=== PATIENT | male | born 1955 | race Caucasian/White ===

== ENCOUNTER 2025-02-04 14:48 | Outpatient (CLI) | payer MEDICARE, SELFPAY ==
--- OUTSIDE RECORDS SUMMARY | 2025-02-04 14:53 | XMS_ITS | Clinical Summary ---
Author Organization [facility] Address [facility] [place] [address] Care Team Providers Care Gunite Mixer Name Role Phone Unavailable Primary Care Provider Unavailabl e Social History Tobacco Use Types Packs/Day Years Used Date Smoking Tobacco: Never Assessed Sex and Gender Information Value Date Recorded Sex Assigned at Not on file Legal Sex Male 9:46 PM CDT Gender Identity Not on file Sexual Orientation Not on file Plan of Treatment Health Maintenance Due Date Last Done Comments Colorectal Cancer Screening Colonoscopy (10 Years) 1955 Hepatitis C 1973 DTaP, Tdap and Td Vaccines ( 1 - Tdap) 1974 Pneumococcal Vaccine: 50+ Ye ars (1 of 1 - PCV) 2005 Zoster Vaccines (1 of 2) 2005 COVID-19 Vaccine ( - 2023-2 5 season) 2024 RSV Immunization or 60+ Years (1 - 1-dose 75+ series) 2030 Meningococcal B Vaccine Aged Out No l onger eligible based on patient's age to complete this topic Meningococcal Vaccine Aged Out No gloria johanny eligible based on patient's age to complete this topic RSV Immunizations Under 20 Months Aged Out No longer eligible based on patient's age to complete this topic
--- OUTSIDE RECORDS SUMMARY | 2025-02-04 14:53 | XMS_ITS | Clinical Summary ---
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 Gender Identity Not on file Sexual Orientation Not on file Plan of Treatment Health Maintenance Due Date Last Done Comments Hepatitis C Virus (HCV) Screening 1955 Cologuard 2000 Colonoscopy 2000 Colorectal Cancer Screening 2000 Immunochemical Fecal Occult Blood 2000 Zoster Immunization (2 of 2) 07/31/2020 06/05/2020 Pneumococcal Immunization (5 0+ years) (2 of 2 - PPSV23) 06/05/2021 06/05/2020 SARS-COV-2 Immunization (4 - season) 2024 05/11/2021, 10/04/2020, 09/13/2020 Influenza Immunization (Seas on Ended) 2025 06/05/2020 Respiratory Syncytial Virus (RSV) Immunization (Adult) (1 - 1-dose 75+ series) 2030 DTaP/Tdap/Td Immunization Discontinued 06/05/2020 Pneumococcal Immunization Combined Discontinued 06/05/2020 TdaP Immunization Completed 06/05/2020 Hepatitis B Immunization Aged Out No longer eligible based on patient's age to complete this topic Human Papillomavirus (HPV) Immunization Aged Out No longer eligible based on patient's age to complete this topic Meningococcal Immunization (ACWY) Aged Out No longer eligible based on patient's age to complete this topic Rotavirus Immunization Aged Out No lo nger eligible based on patient's age to complete this topic
[2025-02-04 15:08] LABS: Hematocrit 41.8 % (42.0-52.0); Hemoglobin 14.2 g/dL (14.0-18.0)
[2025-02-04 15:25] LABS: Albumin Level 4.2 g/dL (3.5-5.1); Estimated Glomerular Filt Rate 53; Glucose 114 mg/dL (65-110)
== END 2025-02-04 14:49 | disposition home or self-care (01) ==
PROVIDERS: PCP Internal Medicine; Visit Provider Orthopaedic Surgery
DX: E78.2 Mixed hyperlipidemia (principal); N18.30 Chronic kidney disease, stage 3 unspecified; G72.0 Drug-induced myopathy; T46.6X5A Adverse effect of antihyperlipidemic and antiarteriosclerotic drugs, initial encounter
CPT/HCPCS: 36415; 82040; 82565; 82947; 85014; 85018

== ENCOUNTER 2025-02-11 08:15 | Outpatient (CLI) | payer MEDICARE, SELFPAY ==
--- OUTSIDE RECORDS SUMMARY | 2025-02-11 08:20 | XMS_ITS | Clinical Summary ---
Author Organization [facility] Address [facility] [place] [address] Care Team Providers Care Pilot Plant Operator Name Role Phone Unavailable Primary Care Provider [...]
--- OUTSIDE RECORDS SUMMARY | 2025-02-11 08:20 | XMS_ITS | Encounter Summary ---
Author Organization [facility] Address [address] [place] [address] Care Team Providers Care Human Resources Leader Name Role Phone Eddie Meadows MD Primary Care Provider Unavailab le Encounter Details Date Type Department Care Team (Late st Contact Info) Description 01/23/1999 Inpatient Historical HIS PATIENT IN A BED Nikki Hdez MD [address] [facility] [place] [address] Other specified oesophagitis (Primary Dx) Social History Tobacco Use Types Packs/Day Years Used Date Smoking Tobacco: Never Assessed Sex and Gender Information Value Date Recorded Sex Assigned at Not on file Legal Sex Male 3:48 AM RANGE TECHNICIAN Gender Identity Not on file Sexual Orientation Not on file documented as of this encounter Plan of Treatment Upcoming Encounters Date Type Department Care Team (Late st Contact Info) Description 03/11/2025 1:00 PM CDT Office Visit [facility] Heart and Vascular At [address] [place] [address] Cooper Paulson MD [address] [facility] [place] [address] documented as of this encounter Visit Diagnoses Diagnosis Other specified oesophagitis- Primary Other esophagitis documented in this encounter Care Teams Human Resources Leader Relationship Specialty Start Date End Date Eddie Meadows MD PCP - General Internal Medicine 12/03/20 documented as of this encounter
--- OUTSIDE RECORDS SUMMARY | 2025-02-11 08:20 | XMS_ITS | Clinical Summary ---
Author Organization [facility] Address [address] [place] [address] Care Team Providers Care Tubing Assembler Name Role Phone Eddie Meadows MD Primary Care Provider Unavailab le Allergies Active Allergy Reactions Criticality Noted Date Comments Amlodipine Other (See Comments) 09/18/2011 Leg swelling Atorvastatin Muscle Pain Low 09/18/2011 Body Lotion Other (See Comments),Rash Medium 10/11/2020 Carvedilol Other (See Comments) 09/18/2011 Weight gain and lethergy Clonazepam Other (See Comments),Unknown 10/11/2020 Codeine Unknown 06/13/2019 Doxazosin Other (See Comments) 09/18/2011 Ankle swelling Egg Derived Angioedema High 09/18/2011 Ezetimibe Muscle Pain Low 10/22/2017 Fenofibrate Micronized Muscle Pain Low 09/18/2011 Hydrochlorothiazide Swelling Medium 10/11/2020 Meloxicam Other (See Comments),Unknown 10/11/2020 Metformin Nausea and Vomiting Low 10/11/2020 Metoprolol Succinate Muscle Pain Low 09/18/2011 Niacin Other (See Comments) 09/18/2011 Flushing Quinapril Cough Low 09/18/2011 Rosuvastatin Muscle Pain Low 09/18/2011 Medications fluticasone (FLONASE) 50 mcg/Actuation Both Nostril SpSn Administer 2 Sprays in each nostril daily. 3 3 8 Active cyanocobalamin (VITAMIN B-12) 1,000 mcg Tablet, SublingualIndic ations:Statin intolerance,CAD (coronary artery disease),Metabo lic syndrome,HTN (hypertension), Myalgia and myositis,Mixed dyslipidemia,Go ut,Impaired fasting glucose,Depress ion with anxiety,Sleep apnea, obstructive,Demetrius ign prostatic hypertrophy with urinary obstruction,Obe sity,Anemia Place under tongue. Active MULTIVITAMIN ORALIndications :Statin intolerance,CAD (coronary artery disease),Metabo lic syndrome,HTN (hypertension), Myalgia and myositis,Mixed dyslipidemia,Go ut,Impaired fasting glucose,Depress ion with anxiety,Sleep apnea, obstructive,Demetrius ign prostatic hypertrophy with urinary obstruction,Obe sity,Anemia Take by mouth. Act justice EPINEPHrine (EPIPEN) 0.3 mg/0.3 mL Auto-InjectorIn dications:Stati n intolerance,CAD (coronary artery disease),Metabo lic syndrome,HTN (hypertension), Myalgia and myositis,Mixed dyslipidemia,Go ut,Impaired fasting glucose,Depress ion with anxiety,Sleep apnea, obstructive,Demetrius ign prostatic hypertrophy with urinary obstruction,Obe sity,Anemia Inject 0.3 mg by intramuscular injection one time only. Active cpap director of graduate medical education daily. Active aspirin (ECOTRIN EC) 81 mg Tablet, Delayed Release (E.C.) Take 1 Tablet (81 mg) by mouth daily. 5 Active nitroglycerin (NITROSTAT) 0.[address], [address] 1 Tablet (0.4 mg) under tongue every 5 minutes as needed for Chest Pain. 30 Tablet 3 7 Active cpap director of graduate medical education Active econazole (SPECTAZOLE) 1 % Cream APPLY TO FEET AND IN BETWEEEN TOES DAILY 2 Active gabapentin (NEURONTIN) 600 mg tablet Take 600 mg by mouth 3 times daily. 2 Active ALPRAZolam (XANAX) 0.5 mg tabletIndicatio ns:Recurrent major depressive disorder, in partial remission TAKE 1/2 (ONE-HALF) TABLET BY MOUTH NIGHTLY NEEDED FOR ANXIETY 30 Tablet 3 Active tamsulosin (FLOMAX) 0.4 mg capsuleIndicati ons:Statin intolerance,CAD (coronary artery disease),Metabo lic syndrome,HTN (hypertension), Chronic prostatitis,Mix ed dyslipidemia,Go ut,Impaired fasting glucose,Depress ion with anxiety,Sleep apnea, obstructive,Demetrius ign prostatic hyperplasia with urinary obstruction,Obe sity,Anemia Take 1 capsule by mouth once daily 90 Capsule 3 Active ALPRAZolam (XANAX) 0.5 mg tabletIndicatio ns:Recurrent major depressive disorder, in partial remission TAKE 1/2 (ONE-HALF) TABLET BY MOUTH NIGHTLY NEEDED FOR ANXIETY 30 Tablet 3 Active allopurinoL (ZYLOPRIM) 300 mg tabletIndicatio ns:Statin intolerance,CAD (coronary artery disease),Metabo lic syndrome,HTN (hypertension), Mixed dyslipidemia,Go ut,Impaired fasting glucose,Depress ion with anxiety,Sleep apnea, obstructive,Demetrius ign prostatic hyperplasia with urinary obstruction,Obe sity,Anemia,Etelvina lgia due to statin Take 1 tablet by mouth once daily 90 Tablet 3 Active desvenlafaxine (PRISTIQ) 50 mg Extended Release 24 hour tabletIndicatio ns:Recurrent major depressive disorder, in partial remission Take 1 tablet by mouth once daily with breakfast 90 Tablet 3 Active hydroCHLOROthia zide (MICROZIDE) 12.5 mg capsule Take 1 capsule by mouth once daily 90 Capsule 3 Active nebivoloL (BYSTOLIC) 10 mg Tablet Take 1 tablet by mouth once daily 90 Tablet 3 3 Active pantoprazole (PROTONIX) 40 mg Tablet, Delayed Release (E.C.) Take 1 tablet by mouth once daily 90 Tablet 3 Active losartan (COZAAR) 100 mg tablet Take 1 tablet by mouth once daily 90 Tablet 3 Active predniSONE (DELTASONE) 5 mg tablet Take 15 mg by mouth daily. 4 Active evolocumab (Repatha Nikkiick) 140 mg/mL Pen Injector Inject 1 mL (140 mg) by subcutaneous injection every 2 weeks. 2 mL 11 5 Active Active Problems Patient Care Coordination No te Formatting of this note migh t be different from the original. Operator Coating Furnace - Dr. Karl Paulson Problem Noted Date Diagnosed Date Polymyalgia rheumatica. 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 Declines zetia, On Pcsk9 202 2 08/21/2016 History of coronary artery s tent placement. PHILIP to RCA 06/20 in NSTEMI 07/12/2015 Rotator cuff impingement syndrome 09/12/2013 Prediabetes 01/29/2013 Overview (01/29/2013): Treated with Metformin. H/O myelitis 10/03/2012 CAD (coronary artery disease) 09/18/2011 Metabolic syndrome 09/18/2011 HTN (hypertension) 09/18/2011 Myofascial pain syndrome 09/18/2011 Mixed dyslipidemia 09/18/2011 Gout 09/18/2011 Impaired fasting glucose 09/18/2011 Depression with anxiety 09/18/2011 Sleep apnea, obstructive 09/18/2011 Benign prostatic hyperplasia with urinary hesita ncy 09/18/2011 Obesity 09/18/2011 Anemia 09/18/2011 Accelerated hypertension Chest pain Coronary artery disease invo lving [place] heart without angina pectoris Resolved Problems Problem Noted Date Diagnosed Date Resolved Date Cataract, left 08/30/2019 09/04/2019 Cataract, right 08/15/2019 09/04/2019 Statin intolerance 01/24/2016 1 ERRONEOUS ENCOUNTER--DISREGARD 02/26/2012 02/26/2012 Statin intolerance 09/18/2011 1 Encounters Date Type Department Care Team Description 01/20/2025 External Device Data STL ABSTRACTION Provider, Abstract 01/14/2025 Telephone [facility] Heart and Vascular - [facility] [address] [place] [address] Cooper Paulson MD Surgical Clearance 12/23/2024 External Device Data STL ABSTRACTION Provider, Abstract from Last 3 Months Immunizations Immunization Administration Dates Next Due (ADACEL/BOOSTRIX)(10 YR UP) TDAP VACCINE, 0.5ML, IM 06/05/2020 (AREXVY)(60 YR UP) RSV, MATT MBINANT, PROTEIN SUBUNIT RSVPREF, ADJUVANT RECONSTITUTED, 0.5 ML, PF 05/05/2023 (PFIZER)(12 YR UP) COVID-19 VACCINE - EMERGENCY USE AUTHORIZATION, MRNA, [id number](PF) 30 MCG/0.3 ML IM SUSP 05/02/2022,11/16/2021 (PNEUMOVAX 23)(50 YRS UP) PN EUMOCOCCAL POLYSACCHARIDE (PPV23) 0.5 ML, IM 05/11/2021 (PREVNAR 13)(6 WKS UP) PNEUM OCOCCAL CONJUGATE (PCV13) 0.5 ML, IM 06/05/2020 (SHINGRIX)(50 YRS UP) ZOSTER VACCINE RECOMBINANT, 0.5 ML, IM 03/17/2021,06/05/2020 (SPIKEVAX)(12 YRS AND UP)COV ID-19 VACCINE, MRNA, LNP-S(PF) 50 MCG/0.5 ML IM SUSPENCY USE AUTHORIZATION, RECOMBINANT-ADJ(PF) 5 MCG/0.5 ML IM SUSP 06/08/2023 INFLUENZA VACCINE QUADRIVALENT RECOMB 18 YR UP P F IM 05/11/2021,06/05/2020 Influenza Seasonal Unspecified Formulation IM ,05/02/2022 Pneumococcal 13-josue Conj Vacc Patient Supplied 1 Family History * Patient is adopted Medical History Relation Name Comments Hypertension Brother Cataract Father Stroke Father Alzheimer's Disease Maternal Grandmother Cataract Mother Other Mother lupas; aneurysm Stroke Mother Fuchs' dystrophy Neg Hx Glaucoma Neg Hx Macular Degen Neg Hx Relation Name Status Comments Brother Father Maternal Grandmother Mother Social History Tobacco Use Types Packs/Day Years Used Date Smoking Tobacco: Never Smokeless Tobacco: Never Tobacco Cessation:Counseling Given: Not Answered Alcohol Use Standard Drinks/Week Comments Yes 0 (1 standard drink = 0.6 oz pur e alcohol) moderate Sex and Gender Information Value Date Recorded Sex Assigned at Not on file Legal Sex Male 3:48 AM RECREATIONAL LEADER Gender Identity Not on file Sexual Orientation Not on file 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 Not on file Not on file Not on f ile Last Filed Vital Signs Vital Sign Reading Time Taken Comments Blood Pressure 126/70 09/10/2024 12:33 PM RECREATIONAL LEADER Pulse 79 09/10/2024 12:33 PM RECREATIONAL LEADER Temperature 36.7 C (98.1 F) 10/05/2022 2:02 PM RECREATIONAL LEADER Respiratory Rate 14 09/07/2022 12:00 PM RECREATIONAL LEADER Oxygen Saturation 96% 09/10/2024 12:33 PM RECREATIONAL LEADER Inhaled Oxygen Concentration - - Weight 114.8 kg (253 lb) 09/10/2024 12:33 PM RECREATIONAL LEADER Height 188 cm (6' 2) 09/10/2024 12:33 PM RECREATIONAL LEADER Body Mass Index 32.48 09/10/2024 12:33 PM RECREATIONAL LEADER Plan of Treatment Upcoming Encounters Date Type Department Care Team (Late st Contact Info) Description 03/11/2025 1:00 PM CDT Office Visit [facility] Heart and Vascular At [place] [address] [facility] [address] [place] [address] Cooper Paulson MD [address] [place] [address] Health Maintenance Due Date Last Done Comments FIT-DNA Q 3 years 2000 Flex Sig/CT Colonography Q 5 years 2000 FIT/FOBT Q 1 year 07/02/2008 07/02/2007, 04/08/2002 COLORECTAL SCREENING 09/18/2018 09/18/2008 Colorectal Cancer Screening 09/18/2018 COVID-19 Vaccine (2023-2 5 season) 2024 06/08/2023, 05/02/2022, 11/16/2021 INFLUENZA VACCINE (#1) 2025 , 05/05/2023, 05/02/2022, Additional history exists Pre-Diabetes and Diabetes Screening 10/05/2025 10/05/2022, 06/23/2022, 01/04/2022, Additional history exists DTAP/TDAP/TD VACCINES (2 - T d or Tdap) 06/05/2030 06/05/2020 ZOSTER VACCINE Completed 03/17/2021, 06/05/2020 PNEUMOCOCCAL VACCINE 50+ YEARS Completed 1 , 06/05/2020, 06/05/2020 RSV VACCINE (60+ or ) Completed 05/05/2023 Medical Devices Implanted Type Area Heater Planer Operator Device Identifier Shelf Expiration Date Model / Serial / Lot Lens Io [id number] 17.5 - [id number] Implanted:Qty : 1 on 08/19/2019 by Sourav Alvarez MD at [facility] Eye Right: Eye [employer] 10/04/2023 SN60WF.17 5 / [id number] / Lens Io Sn60wf 18.0 - [id number] Implanted:Qty : 1 on 09/02/2019 by Sourav Alvarez MD at [facility] Eye Left: Eye [employer] 04/05/2024 SN60WF.18 0 / [id number] / Promus Premier-06/23 Implanted:Qty : 1 on 06/23/2015 by Cooper Paulson MD Stent Coronary [employer] - INTERVENTIONAL CA 05/10/2016 / / [id number] Description:3.5mm X 20mm PHILIP to RCA Procedures Procedure Name Priority Date/Time Associated Diagnosis Comments HEMOGLOBIN A1C Routine 10/05/2022 2:53 PM RECREATIONAL LEADER Prediabetes from Last 3 Months or Most Recently Relevant to Health Maintenance Results * HEMOGLOBIN A1C (10/05/2022 2:53 PM RECREATIONAL LEADER) HEMOGLOBIN A1C 5.5 <5.7 % of total Hgb ParentingInformerGaye Burger Comment: For the purpose of screening for the presence of diabetes: <5.7% Consistent with the absence of diabetes 5.7-6.4% Consistent with increased risk for diabetes (prediabetes) > or =6.5% Consistent with diabetes This assay result is consistent with a decreased risk of diabetes. Currently, no consensus exists regarding use of hemoglobin A1c for diagnosis of diabetes in children. According to [place] Diabetes Association (ADA) guidelines, hemoglobin A1c <7.0% represents optimal control in non- diabetic patients. Different metrics may apply to specific patient populations. Standards of Medical Care in Diabetes(ADA). ESTIMATED AVERAGE GLUCOSE (MG/DL) 111 mg/dL ParentingInformerArvin Burger ESTIMATED AVERAGE GLUCOSE (MMOL/L) 6.2 mmol/L Alverto Burger Comment: [facility]: [facility] [address] [place] [address] Kimberly-Gris Thi Vo Blood 10/05/2022 2:53 PM RECREATIONAL LEADER 10/05/2022 2:54 PM RECREATIONAL LEADER us Eddie Meadows MD CHEMISTRY ORDERABLES Final Resul t [facility] [phone] [facility] [address] [place] [address] from Last 3 Months or Most Recently Relevant to Health Maintenance Insurance AETNA PPO [facility] RX AETNA Medicare Part D AETNA PPO [facility] Advance Directives For more information, please contact: [phone] * Full Code (Latest Code Status on File) Date Activated Date Inactivated Comments 09/07/2022 10:22 AM 09/07/2022 2:54 PM * Full Code Date Activated Date Inactivated Comments 09/07/2022 8:13 AM 09/07/2022 10:22 AM * Full Code Date Activated Date Inactivated Comments 09/02/2019 7:59 AM 09/02/2019 12:05 PM * Full Code Date Activated Date Inactivated Comments 08/19/2019 7:13 AM 08/19/2019 6:17 PM * Full Code Date Activated Date Inactivated Comments 06/23/2015 9:36 AM 06/24/2015 4:16 PM Care Teams Tubing Assembler Relationship Specialty Start Date End Date Eddie Meadows MD PCP - General Internal Medicine 12/03/20
--- OUTSIDE RECORDS SUMMARY | 2025-02-11 08:20 | XMS_ITS | Encounter Summary ---
Author Organization [facility] Address [address] [place] [address] Care Team Providers Care Type Photography Supervisor Name Role Phone Eddie Meadows MD Primary Care Provider Unavailab le Encounter Details Date Type Department Care Team (Late st Contact Info) Description 03/10/2002 Outpatient Historical [facility] Internal Medicine [address] [address] [place] [address] Familia Slade MD Social History Tobacco Use Types Packs/Day Years Used Date Smoking Tobacco: Never Assessed Sex and Gender Information Value Date Recorded Sex Assigned at Not on file Legal Sex Male 3:48 AM VASCULAR TECHNICIAN Gender Identity Not on file Sexual Orientation Not on file documented as of this encounter Plan of Treatment Upcoming Encounters Date Type Department Care Team (Late st Contact Info) Description 03/11/2025 1:00 PM CDT Office Visit [facility] Heart and Vascular At [place] [address] [facility] [address] [place] [address] Cooper Paulson MD [address] [facility] [place] [address] documented as of this encounter Visit Diagnoses Not on filedocumented in this encounter Care Teams Type Photography Supervisor Relationship Specialty Start Date End Date Eddie Meadows MD PCP - General Internal Medicine 12/03/20 documented as of this encounter
--- OUTSIDE RECORDS SUMMARY | 2025-02-11 08:20 | XMS_ITS | Encounter Summary ---
Author Organization [facility] Address [address] [place] [address] Care Team Providers Care Insurance Risk Analyst Name Role Phone Eddie Meaodws MD Primary Care Provider Unavailab le Encounter Details Date Type Department Care Team (Late st Contact Info) Description 01/23/1999 Outpatient Historical [facility] Familia Niño MD Social History Tobacco Use Types Packs/Day Years Used Date Smoking Tobacco: Never Assessed Sex and Gender Information Value Date Recorded Sex Assigned at Not on file Legal Sex Male 3:48 AM IDENTIFICATION CLERK Gender Identity Not on file Sexual Orientation Not on file documented as of this encounter Plan of Treatment Upcoming Encounters Date Type Department Care Team (Late st Contact Info) Description 03/11/2025 1:00 PM CDT [facility] Visit [facility] At [address] [place] [address] Cooper Paulson MD [facility] [address] [place] [address] documented as of this encounter Visit Diagnoses Not on filedocumented in this encounter Care Teams Insurance Risk Analyst Relationship Specialty Start Date End Date Eddie Meadows MD PCP - General Internal Medicine 12/03/20 documented as of this encounter
--- OUTSIDE RECORDS SUMMARY | 2025-02-11 08:20 | XMS_ITS | Encounter Summary ---
Author Organization [facility] Address [address] [place] [address] Care Team Providers Care Adobe Layer Helper Name Role Phone Eddie Meadows MD Primary Care Provider Unavailab le Encounter Details Date Type Department Care Team (Late st Contact Info) Description 10/31/[address] 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 Heart and Vascular At [place] [address] [facility] [address] [place] [address] Cooper Paulson MD [address] [facility]. [address] [place] [address] documented as of this encounter Visit Diagnoses Not on filedocumented in this encounter Care Teams Adobe Layer Helper Relationship Specialty Start Date End Date Eddie Meadows MD PCP - General Internal Medicine 12/03/20 documented as of this encounter
--- OUTSIDE RECORDS SUMMARY | 2025-02-11 08:20 | XMS_ITS | Clinical Summary ---
Author Organization [facility] Care Team Providers Care Training Systems Officer Name Role Phone Unavailable Primary Care Provider Unavailabl e Social History Tobacco Use Types Packs/Day Years Used Date Smoking Tobacco: Never Assessed Sex and Gender Information Value Date Recorded Sex Assigned at Not on file Legal Sex Male 10:45 AM GROUNDSKEEPER PORTER Gender Identity Not on file Sexual Orientation [...] season) 2024 05/11/2021, 10/04/2020, 09/13/2020 Influenza Immunization (#1) 2025 06/05/2020 Respiratory Syncytial Virus (RSV) Immunization [...]
--- OUTSIDE RECORDS SUMMARY | 2025-02-11 08:20 | XMS_ITS | Encounter Summary ---
Author Organization [facility] Address 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 [address] [place] [address] documented as of this encounter Visit Diagnoses Not on filedocumented in this encounter Care Teams Farmworker Chicken Farm Relationship Specialty Start Date End Date Eddie Meadows MD PCP - General Internal Medicine 12/03/20 documented as of this encounter
--- OUTSIDE RECORDS SUMMARY | 2025-02-11 08:20 | XMS_ITS | Encounter Summary ---
Author Organization [facility] Address [address] [place] [address] Care Team Providers Care Chummer Name Role Phone Eddie eMadows MD Primary Care Provider Unavailab le Encounter Details Date Type Department Care Team (Late st Contact Info) Description 04/22/2002 Outpatient Historical [facility] 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 [address] [place] [address] documented as of this encounter Visit Diagnoses Not on filedocumented in this encounter Care Teams Chummer Relationship Specialty Start Date End Date Eddie Meadows MD PCP - General Internal Medicine 12/03/20 documented as of this encounter
--- OUTSIDE RECORDS SUMMARY | 2025-02-11 08:20 | XMS_ITS | Encounter Summary ---
Author Organization [facility] Address 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. [address] [place] [address] documented as of this encounter Visit Diagnoses Not on filedocumented in this encounter Care Teams Furniture Duster Relationship Specialty Start Date End Date Eddie Meadows MD PCP - General Internal Medicine 12/03/20 documented as of this encounter
--- OUTSIDE RECORDS SUMMARY | 2025-02-11 08:20 | XMS_ITS | Encounter Summary ---
Author Organization [facility] Address 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 [address] [place] [address] documented as of this encounter Visit Diagnoses Not on filedocumented in this encounter Care Teams Spray Gun Sizer Relationship Specialty Start Date End Date Eddie Meadows MD PCP - General Internal Medicine 12/03/20 documented as of this encounter
--- OUTSIDE RECORDS SUMMARY | 2025-02-11 08:20 | XMS_ITS | Encounter Summary ---
Author Organization [facility] Address 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 [address] [place] [address] documented as of this encounter Visit Diagnoses Not on filedocumented in this encounter Care Teams Activity Therapist Relationship Specialty Start Date End Date Eddie Meadows MD PCP - General Internal Medicine 12/03/20 documented as of this encounter
--- OUTSIDE RECORDS SUMMARY | 2025-02-11 08:20 | XMS_ITS | Encounter Summary ---
Author Organization [facility] Address [address] [place] [address] Care Team Providers Care Molding Plasterer Name Role Phone Eddie Meadows MD Primary Care Provider Unavailab le Encounter Details Date Type Department Care Team (Late st Contact Info) Description 01/11/1999 Outpatient Historical 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 Heart and Vascular At [address] [place] [address] Cooper Paulson MD [facility]3 [facility] [address] [place] [address] documented as of this encounter Visit Diagnoses Not on filedocumented in this encounter Care Teams Molding Plasterer Relationship Specialty Start Date End Date Eddie Meadows MD PCP - General Internal Medicine 12/03/20 documented as of this encounter
--- OUTSIDE RECORDS SUMMARY | 2025-02-11 08:20 | XMS_ITS | Encounter Summary ---
Author Organization [facility] Address 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 [address] [place] [address] documented as of this encounter Visit Diagnoses Not on filedocumented in this encounter Care Teams Plant Machinist Relationship Specialty Start Date End Date Eddie Meadows MD PCP - General Internal Medicine 12/03/20 documented as of this encounter
--- OUTSIDE RECORDS SUMMARY | 2025-02-11 08:20 | XMS_ITS | Encounter Summary ---
Author Organization [facility] Address [address] [place] [address] Care Team Providers Care Laborer Driver Name Role Phone Eddie Meadows MD Primary Care Provider Unavailab le Encounter Details Date Type Department Care Team (Late st Contact Info) Description 01/29/1999 Outpatient Historical [facility] Internal Medicine [facility] and [address] [place] [address] Avis Allen MD [address] [address] Social History Tobacco Use Types Packs/Day Years Used Date Smoking Tobacco: Never Assessed Sex and Gender Information Value Date Recorded Sex Assigned at Not on file Legal Sex Male 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 [address] [place] [address] documented as of this encounter Visit Diagnoses Not on filedocumented in this encounter Care Teams Laborer Driver Relationship Specialty Start Date End Date Eddie Meadows MD PCP - General Internal Medicine 12/03/20 documented as of this encounter
--- OUTSIDE RECORDS SUMMARY | 2025-02-11 08:20 | XMS_ITS | Encounter Summary ---
Author Organization [facility] Address 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 [address] [place] [address] documented as of this encounter Visit Diagnoses Not on filedocumented in this encounter Care Teams Administrative Law Judge Relationship Specialty Start Date End Date Eddie Meadows MD PCP - General Internal Medicine 12/03/20 documented as of this encounter
--- OUTSIDE RECORDS SUMMARY | 2025-02-11 08:20 | XMS_ITS | Encounter Summary ---
Author Organization [facility] Address 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 [place], [place] [address] documented as of this encounter Visit Diagnoses Not on filedocumented in this encounter Care Teams Four H Club Agent Relationship Specialty Start Date End Date Eddie Meadows MD PCP - General Internal Medicine 12/03/20 documented as of this encounter
--- OUTSIDE RECORDS SUMMARY | 2025-02-11 08:20 | XMS_ITS | Encounter Summary ---
Author Organization [facility] Address 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 [address] [place] [address] documented as of this encounter Procedures Procedure Name Priority Date/Time Associated Diagnosis Comments CBC WITH DIFFERENTIAL Routine 07/02/2007 11:16 AM SALES ACTIVITY MANAGER CBC WITH DIFFERENTIAL Routine 07/02/2007 11:16 AM SALES ACTIVITY MANAGER PSA Routine 07/02/2007 11:16 AM SALES ACTIVITY MANAGER LIPID PANEL Routine 07/02/2007 11:16 AM SALES ACTIVITY MANAGER COMPREHENSIVE METABOLIC PANEL Routine 07/02/2007 11:16 AM SALES ACTIVITY MANAGER documented in this encounter Results * CBC WITH DIFFERENTIAL (07/02/2007 11:16 AM SALES ACTIVITY MANAGER) NEUTROPHILS 66 45 - 70 % INTERFAC E SYSTEM LYMPHOCYTES 23 16 - 45 % INTERFAC E SYSTEM MONOCYTES 8 3 - 13 % INTERFACE SYSTEM EOSINOPHILS 3 0 - 7 % INTERFAC E SYSTEM BASOPHILS 0 0 - 2 % INTERFACE SYSTEM NEUTROPHIL ABSOLUTE 4.45 1.90 - 7.00 K/uL INTERFACE SYSTEM LYMPHOCYTE ABSOLUTE 1.56 0.70 - 4.50 K/uL INTERFACE SYSTEM MONOCYTE ABSOLUTE 0.53 0.10 - 1.30 K/uL INTERFACE SYSTEM EOSINOPHIL ABSOLUTE 0.20 0.00 - 0.70 K/uL INTERFACE SYSTEM BASOPHILS ABSOLUTE 0.02 0.00 - 0.20 K/uL INTERFACE SYSTEM 07/02/2007 11:1 6 AM SALES ACTIVITY MANAGER Familia Slade MD HEMATOLOGY ORDERABLES Edited Performing Organization Address [facility] de Phone Number INTERFACE SYSTEM Refer to clinic/hospital department * CBC WITH DIFFERENTIAL (07/02/2007 11:16 AM SALES ACTIVITY MANAGER) Pathologist [facility] WBC 6.8 4.0 - 9.8 K/uL INTERFACE SYSTEM RBC 4.98 4.50 - 5.40 M/uL INTERFACE SYSTEM HEMOGLOBIN 15.4 13.6 - 16.5 g/dL INTERFACE SYSTEM HEMATOCRIT 44.6 40.0 - 48.0 % INTERFACE SYSTEM MCV 89.6 82.0 - 99.0 fL INTERFACE SYSTEM MCH 30.9 27.2 - 32.6 pg INTERFACE SYSTEM MCHC 34.5 31.5 - 35.5 % INTERFACE SYSTEM RDW 12.8 11.5 - 14.5 % INTERFACE SYSTEM RDW-STDEV 40.8 37.1 - 48.7 fL INTERFACE SYSTEM PLATELETS 262 140 - 350 K/uL INTERFACE SYSTEM MPV 11.4 9.3 - 12.4 fL INTERFACE SYSTEM 07/02/2007 11:1 6 AM SALES ACTIVITY MANAGER Familia Slade MD HEMATOLOGY ORDERABLES Edited Performing Organization Address [facility]/State/ZIP Co de Phone Number INTERFACE SYSTEM Refer to clinic/hospital department * PSA (07/02/2007 11:16 AM SALES ACTIVITY MANAGER) PSA 1.2 0.0 - 4.0 ng/mL INTERFACE SYSTEM Comment:Performed on [employer] E170 System 07/02/2007 11:1 6 AM SALES ACTIVITY MANAGER Familia Slade MD CHEMISTRY ORDERABLES Edited Performing Organization Address City/[facility] Co de Phone Number INTERFACE SYSTEM Refer to clinic/hospital department * (ABNORMAL) LIPID PANEL (07/02/2007 11:16 AM SALES ACTIVITY MANAGER) CHOLESTEROL 209(H) 100 - 199 mg/dL INTERFACE SYSTEM TRIGLYCERIDE 172(H) 10 - 149 mg/dL INTERFACE SYSTEM HDL 34(L) 40 - 59 mg/dL INTERFACE SYSTEM CHOL/HDL RATIO 6.1(H) 2.0 - 5.0 INTER FACE SYSTEM LDL CALCULATED 141(H) <=99 mg/dL INTERFACE SYSTEM LIPID PANEL COMMENT See Below INTERFACE SYSTEM Comment: The adult ATP and pediatric NCEP classifications for lipids are available on the [facility] Intranet at: [email or web address] [email or web address] Select: Lab Policies and Procedures,Current Select: Lipid Panel Interpretation 07/02/2007 11:1 6 AM SALES ACTIVITY MANAGER Familia Slade MD CHEMISTRY ORDERABLES Edited Performing Organization Address City/[facility] Co de Phone Number INTERFACE SYSTEM Refer to clinic/hospital department * (ABNORMAL) COMPREHENSIVE METABOLIC PANEL (07/02/2007 11:16 AM SALES ACTIVITY MANAGER) GLUCOSE 101(H) 65 - 99 mg/dL INTERFACE SYSTEM CREATININE 1.16 0.67 - 1.17 mg/dL INTERFACE SYSTEM CALCIUM 9.0 8.4 - 10.2 mg/dL INTERFACE SYSTEM ALKALINE PHOSPHATASE 68 40 - 129 U/L INTERFACE SYSTEM AST 23 12 - 38 U/L INTERFACE SYSTEM ALT 36 0 - 41 U/L INTERFACE SYSTEM TOTAL PROTEIN 7.1 6.3 - 8.6 g/dL INTERFACE SYSTEM ALBUMIN 4.5 3.4 - 4.8 g/dL INTERFACE SYSTEM BILIRUBIN TOTAL 0.6 0.2 - 1.0 mg/dL INTERFACE SYSTEM BUN 16 6 - 20 mg/dL INTERFACE SYSTEM SODIUM 140 135 - 145 mmol/L INTERFACE SYSTEM POTASSIUM 4.5 3.5 - 4.9 mmol/L INTERFACE SYSTEM CHLORIDE 102 96 - 108 mmol/L INTERFACE SYSTEM CO2 30 22 - 30 mmol/L INTERFACE SYSTEM GFR, >60 >=60 mL/min/1. 7 sq meter INTERFACE SYSTEM GFR >60 >=60 mL/min/1. 7 sq meter INTERFACE SYSTEM Comment: Estimated GFR rate interpretative information for both Americans and non- Americans is available on the [facility] Ception Therapeuticset at: [email or web address] Select: Lab Policies and Procedures Select: Reference Ranges - GFR 07/02/2007 11:1 6 AM SALES ACTIVITY MANAGER Familia Slade MD CHEMISTRY ORDERABLES Edited INTERFACE SYSTEM Refer to clinic/hospital department documented in this encounter Visit Diagnoses Diagnosis Essential hypertension, benign- Primary documented in this encounter Care Teams Telephone Assembler Relationship Specialty Start Date End Date Eddie Meadows MD PCP - General Internal Medicine 12/03/20 documented as of this encounter
--- OUTSIDE RECORDS SUMMARY | 2025-02-11 08:20 | XMS_ITS | Encounter Summary ---
Author Organization [facility] Address 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 [address] [place] [address] Cooper Paulson MD [address] [facility]. [address] [place] [address] documented as of this encounter Visit Diagnoses Not on filedocumented in this encounter Care Teams Hotel Housekeeper Relationship Specialty Start Date End Date Eddie Meadows MD PCP - General Internal Medicine 12/03/20 documented as of this encounter
--- OUTSIDE RECORDS SUMMARY | 2025-02-11 08:20 | XMS_ITS | Encounter Summary ---
Author Organization [facility] Address 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 [place] [address] documented as of this encounter Visit Diagnoses Not on filedocumented in this encounter Care Teams Security Police Relationship Specialty Start Date End Date Eddie Meadows MD PCP - General Internal Medicine 12/03/20 documented as of this encounter
--- OUTSIDE RECORDS SUMMARY | 2025-02-11 08:20 | XMS_ITS | Encounter Summary ---
Author Organization [facility] Address 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 Gender Identity Not on file Sexual Orientation Not on file documented as of this encounter Plan of Treatment Upcoming Encounters Date Type Department Care Team (Late st Contact Info) Description 03/11/2025 1:00 PM CDT Office Visit [facility] Heart and Vascular At [place] [address] [facility] [address] [place] [address] Cooper Paulson MD [facility] [address] [place] [id number] documented as of this encounter Visit Diagnoses Diagnosis Other dyspnea and respiratory abnormality- Primary documented in this encounter Care Teams Electronic Bench Technician Relationship Specialty Start Date End Date Eddie Meadows MD PCP - General Internal Medicine 12/03/20 documented as of this encounter
--- OUTSIDE RECORDS SUMMARY | 2025-02-11 08:20 | XMS_ITS | Encounter Summary ---
Author Organization [facility] Address [address] [place] [address] Care Team Providers Care Cabin Supervisor Name Role Phone Eddie Meadows MD Primary Care Provider Unavailab le Encounter Details Date Type Department Care Team (Late st Contact Info) Description 03/12/[address] 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 Heart and Vascular At [place] [address] [facility] [address] [place] [address] Cooper Paulson MD [address] [facility] [place] [address] documented as of this encounter Visit Diagnoses Not on filedocumented in this encounter Care Teams Cabin Supervisor Relationship Specialty Start Date End Date Eddie Meadows MD PCP - General Internal Medicine 12/03/20 documented as of this encounter
--- OUTSIDE RECORDS SUMMARY | 2025-02-11 08:20 | XMS_ITS | Encounter Summary ---
Author Organization [facility] Address 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 [address] [place] [address] documented as of this encounter Visit Diagnoses Diagnosis Concussion with no loss of consciousness- Primary documented in this encounter Care Teams Director Of Casework Department Relationship Specialty Start Date End Date Eddie Meadows MD PCP - General Internal Medicine 12/03/20 documented as of this encounter
--- OUTSIDE RECORDS SUMMARY | 2025-02-11 08:20 | XMS_ITS | Encounter Summary ---
Author Organization [facility] Address [address] [place] [address] Care Team Providers Care Head Sawyer Name Role Phone Eddie Meadows MD Primary Care Provider Unavailab le Encounter Details Date Type Department Care Team (Late st Contact Info) Description 07/04/2005 Outpatient Historical [facility] Internal Medicine [place] [address] [place] [address] Familia Slade MD Social History Tobacco Use Types Packs/Day Years Used Date Smoking Tobacco: Never Assessed Sex and Gender Information Value Date Recorded Sex Assigned at Not on file Legal Sex Male 3:48 AM BENDER HAND Gender Identity Not on file Sexual Orientation Not on file documented as of this encounter Plan of Treatment Upcoming Encounters Date Type Department Care Team (Late st Contact Info) Description 03/11/2025 1:00 PM CDT Office Visit [facility] Heart and Vascular At [place] [address] [facility] [address] [place] [address] Cooper Paulson MD [address] [facility]. [address] [place] [address] documented as of this encounter Visit Diagnoses Not on filedocumented in this encounter Care Teams Head Sawyer Relationship Specialty Start Date End Date Eddie Meadows MD PCP - General Internal Medicine 12/03/20 documented as of this encounter
--- OUTSIDE RECORDS SUMMARY | 2025-02-11 08:20 | XMS_ITS | Encounter Summary ---
Author Organization [facility] Address 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 [place], [place] [phone] documented as of this encounter Visit Diagnoses Diagnosis Special screening for malignant neoplasms, colon- Primary documented in this encounter Care Teams English Division Chair Relationship Specialty Start Date End Date Eddie Meadows MD PCP - General Internal Medicine 12/03/20 documented as of this encounter
--- OUTSIDE RECORDS SUMMARY | 2025-02-11 08:20 | XMS_ITS | Encounter Summary ---
Author Organization [facility] Address [address] [place] [address] Care Team Providers Care Lead Painter Name Role Phone Eddie Meadows MD Primary Care Provider Unavailab le Encounter Details Date Type Department Care Team (Late st Contact Info) Description 07/02/[address] 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 Heart and Vascular At [place] [address] [facility] [address] [place] [address] Cooper Paulson MD [address] [facility] [place] [address] documented as of this encounter Visit Diagnoses Not on filedocumented in this encounter Care Teams Lead Painter Relationship Specialty Start Date End Date Eddie Meadows MD PCP - General Internal Medicine 12/03/20 documented as of this encounter
--- NOTE | 2025-02-11 08:42 | ECG_ITS ---
Test Date: 2025-02-11 09:07:51 Measurements Intervals [place] Rate: 67 P: 61 [place]: 147 QRS: 6 QRSD: 98 T: 7 QT: 410 QTc: 434 Interpretive Statements SINUS RHYTHM No previous ECG available for comparison Electronically Signed On 02-11-2025 14:38:21 CDT by Imtiaz Go M.D.
== END 2025-02-11 08:16 | disposition home or self-care (01) ==
PROVIDERS: PCP Internal Medicine; Visit Provider Orthopaedic Surgery
DX: I13.10 Hypertensive heart and chronic kidney disease without heart failure, with stage 1 through stage 4 chronic kidney disease, or unspecified chronic kidney disease (principal); N18.30 Chronic kidney disease, stage 3 unspecified
CPT/HCPCS: 93005

== ENCOUNTER 2025-04-15 10:18 | Outpatient (CLI) | payer MEDICARE, SELFPAY ==
--- OUTSIDE RECORDS SUMMARY | 2012-11-14 07:55 | XMS_ITS | Continuity of Care Document ---
Author Organization [facility] Address [address] [place] [address] Phone Care Team Providers Care Controlled Area Checker Name Role Phone Santana Bianchi MD Unavailable Unavailable Allergies, Adverse Reactions, Alerts Substance Reaction Status Criticality No Known allergies Medications Medication Instructions Dosage Effective Dates (start - stop) Status Comments Mobic 15 mg tablet take 1 tablet (15MG) 1 po qd w/ food - Active PRISTIQ (unknown strength) Not Available - Active MICARDIS (unknown strength) Not Available - Active BYSTOLIC (unknown strength) Not Available - Active FLOMAX (unknown strength) Not Available - Active OMEPRAZOLE (unknown strength) Not Available - Active Procedures Procedure Date MU Reporting OFFICE CONSULTATION Advance Directives Directive Yes / No Effective Date File Name No Information Encounters Encounter Description Practice Location Reason(s) For Visit Diagnoses Date Provider Providers Copied on Encounter [facility], [address], [facility], tel:[phone] [facility] No Information 3 Arias Dillon. [address] [facility] [place], [id number] . tel: [phone] [facility], [address] [facility] [address] [place] [address], [address], [place] tel:[phone] [facility] Degeneration of lumbar or lumbosacral intervertebral discAcquired spondylolisthesi s Nov- 0-201 3 Arias Dillon. [address] [facility] [place], [address] . tel: [phone] OFFICE CONSULTATION [facility], [address], [place], [address], [place] tel:[phone] [facility] LBP and sciatica (chief complaint) Degeneration of lumbar or lumbosacral intervertebral discHypertension , UnspecifiedSpina l stenosis of lumbar regionAcquired spondylolisthesi s 2 Arias Dillon. [address], [place], [place], [id number] . tel:[phone] Referring Provider: Familia Jacob, [address], [place], [address]. tel:[phone] Family History Family Member Type Diagnosis Age At Onset Problem (finding) Family history of hyper tension Problem (finding) Family history of strok e Payers Payer name Insurance type Covered democrat ID Authoriza tion(s) No Information Social History Type Description Quantity Date Captured Comments Sex Male Smoking Status No Information Chief Complaint And Reason For Visit No Information Reason For Referral Reason For Referral No Information Plan Of Treatment Date Type Action Status Referral Ordered: RADEX SPI LUMBOSAC 2/3 VIEWS spine, lumbar ordered History Of Present Illness Encounter Date Complaint History Of Prese nt Illness No Information Functional Status Date Functional Assessmen t No Information Instructions Date Instruction Additional Cassandrar fred Continue medication as prescribe d Assessments Type Assessment Date No Information Patient Care Teams Name Effective Dates (start - stop) Status Members No Information
--- NOTE | 2025-04-15 11:12 | ECG_ITS ---
Test Date: 2025-04-15 11:25:49 Measurements Intervals [place] Rate: 61 P: 42 HI: 151 QRS: -5 QRSD: 106 T: -5 QT: 407 QTc: 410 Interpretive Statements SINUS RHYTHM NORMAL ELECTROCARDIOGRAM Compared to ECG 02/11/2025 09:07:51 No significant changes Electronically Signed On 04-15-2025 16:22:11 CDT by Alexis Bernal M.D.
--- OUTSIDE RECORDS SUMMARY | 2025-04-15 11:13 | XMS_ITS | Encounter Summary ---
Author Organization [facility] Address 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 [place] [address] documented as of this encounter Visit Diagnoses Diagnosis Special screening for malignant neoplasms, colon- Primary documented in this encounter Care Teams Pairer Relationship Specialty Start Date End Date Eddie Meadows MD PCP - General Internal Medicine 12/03/20 documented as of this encounter
--- OUTSIDE RECORDS SUMMARY | 2025-04-15 11:13 | XMS_ITS | Clinical Summary ---
Author Organization [facility] Care Team Providers Care Beet Worker Name Role Phone Unavailable Primary Care Provider Unavailabl e Social History Tobacco Use Types Packs/Day Years Used Date Smoking Tobacco: Never Assessed Sex and Gender Information Value Date Recorded Sex Assigned at Not on file Legal Sex Male 10:45 AM WASH BARREL LEADER Gender Identity Not on file Sexual Orientation Not on file Plan of Treatment Health Maintenance Due Date Last Done Comments Hepatitis C Virus (HCV) Screening 1955 Cologuard 2000 Colonoscopy 2000 Colorectal Cancer Screening 2000 Immunochemical Fecal Occult Blood 2000 Zoster Immunization (2 of 2) 07/31/2020 06/05/2020 Pneumococcal Immunization (5 0+ years) (2 of 2 - PCV20 or PCV21) 06/05/2021 06/05/2020 Influenza Immunization (#1) 2025 06/05/2020 SARS-COV-2 Immunization (4 - season) 2025 05/11/2021, 10/04/2020, 09/13/2020 Respiratory Syncytial Virus (RSV) Immunization (Adult) (1 [...]
--- OUTSIDE RECORDS SUMMARY | 2025-04-15 11:13 | XMS_ITS | Encounter Summary ---
Author Organization [facility] Address 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 [address] [place] [address] documented as of this encounter Visit Diagnoses Not on filedocumented in this encounter Care Teams Coal Getter Relationship Specialty Start Date End Date Eddie Meadows MD PCP - General Internal Medicine 12/03/20 documented as of this encounter
--- OUTSIDE RECORDS SUMMARY | 2025-04-15 11:13 | XMS_ITS | Encounter Summary ---
Author Organization [facility] Address 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 [address] [place] [address] documented as of this encounter Visit Diagnoses Not on filedocumented in this encounter Care Teams Belt Lacer Relationship Specialty Start Date End Date Eddie Meadows MD PCP - General Internal Medicine 12/03/20 documented as of this encounter
--- OUTSIDE RECORDS SUMMARY | 2025-04-15 11:13 | XMS_ITS | Encounter Summary ---
Author Organization [facility] Address 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 GEOGRAPHY TEACHER Gender Identity Not on file Sexual Orientation Not on file documented as of this encounter Plan of Treatment Upcoming Encounters Date Type Department Care Team (Late st Contact Info) Description 10/05/2025 3:00 PM GEOGRAPHY TEACHER Office Visit [facility] Heart and Vascular At [place] [address] [address] [facility] [address] [place] [address] Cooper Paulson MD [address] [place] [address] [place] [address] documented as of this encounter Visit Diagnoses Diagnosis Other dyspnea and respiratory abnormality- Primary documented in this encounter Care Teams Research Analyst Relationship Specialty Start Date End Date Eddie Meadows MD PCP - General Internal Medicine 12/03/20 documented as of this encounter
--- OUTSIDE RECORDS SUMMARY | 2025-04-15 11:13 | XMS_ITS | Encounter Summary ---
Author Organization [facility] Address 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3 [facility]. [address] [place] [address] documented as of this encounter Visit Diagnoses Not on filedocumented in this encounter Care Teams Tube Sorter Relationship Specialty Start Date End Date Eddie Meadows MD PCP - General Internal Medicine 12/03/20 documented as of this encounter
--- OUTSIDE RECORDS SUMMARY | 2025-04-15 11:13 | XMS_ITS | Encounter Summary ---
Author Organization [facility] Address 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 [address] [place] [address] documented as of this encounter Visit Diagnoses Not on filedocumented in this encounter Care Teams Office Administration Relationship Specialty Start Date End Date Eddie Meadows MD PCP - General Internal Medicine 12/03/20 documented as of this encounter
--- OUTSIDE RECORDS SUMMARY | 2025-04-15 11:13 | XMS_ITS | Encounter Summary ---
Author Organization [facility] Address [address] [place] [address] Care Team Providers Care Stock Trader Name Role Phone Eddie Meadows MD Primary Care Provider Unavailab le Encounter Details Date Type Department Care Team (Late st Contact Info) Description 04/22/2002 Outpatient Historical [facility] (Adt Cardiology[facility] [place] [address] Eddie Diaz Social History Tobacco Use Types Packs/Day Years Used Date Smoking Tobacco: Never Assessed Sex and Gender Information Value Date Recorded Sex Assigned at Not on file Legal Sex Male 3:48 AM WORKERS COMPENSATION ADMINISTRATOR Gender Identity Not on file Sexual Orientation Not on file documented as of this encounter Plan of Treatment Upcoming Encounters Date Type Department Care Team (Late st Contact Info) Description 10/05/2025 3:00 PM WORKERS COMPENSATION ADMINISTRATOR Office Visit [facility] Heart and Vascular At [facility] [address] [facility] [address] [place] [address] Cooper Paulson MD [address] [facility] [place] [address] documented as of this encounter Visit Diagnoses Not on filedocumented in this encounter Care Teams Stock Trader Relationship Specialty Start Date End Date Eddie Meadows MD PCP - General Internal Medicine 12/03/20 documented as of this encounter
--- OUTSIDE RECORDS SUMMARY | 2025-04-15 11:13 | XMS_ITS | Encounter Summary ---
Author Organization [facility] Address [address] [place] [address] Care Team Providers Care Copy Chief Name Role Phone Eddie Maedows MD Primary Care Provider Unavailab le Encounter Details Date Type Department Care Team (Late st Contact Info) Description 01/23/1999 Outpatient Historical [facility] Familia Niño MD Social History Tobacco Use Types Packs/Day Years Used Date Smoking Tobacco: Never Assessed Sex and Gender Information Value Date Recorded Sex Assigned at Not on file Legal Sex Male 3:48 AM CYTOTECHNOLOGIST SUPERVISOR Gender Identity Not on file Sexual Orientation Not on file documented as of this encounter Plan of Treatment Upcoming Encounters Date Type Department Care Team (Late st Contact Info) Description 10/05/2025 3:00 PM CYTOTECHNOLOGIST SUPERVISOR Office Visit [facility] Heart and Vascular At [address] [place] [address] Cooper Paulson MD [address] [place] [address] [place] [phone] documented as of this encounter Visit Diagnoses Not on filedocumented in this encounter Care Teams Copy Chief Relationship Specialty Start Date End Date Eddie Meadows MD PCP - General Internal Medicine 12/03/20 documented as of this encounter
--- OUTSIDE RECORDS SUMMARY | 2025-04-15 11:13 | XMS_ITS | Encounter Summary ---
Author Organization [facility] Address [address] [place] [address] Care Team Providers Care Ball Machine Operator Name Role Phone Eddie Meadows MD Primary Care Provider Unavailab le Encounter Details Date Type Department Care Team (Late st Contact Info) Description 01/29/1999 Outpatient Historical [facility] Internal Medicine [facility] and [address] [place] [address] Avis Allen MD [address] [address] Social History Tobacco Use Types Packs/Day Years Used Date Smoking Tobacco: Never Assessed Sex and Gender Information Value Date Recorded Sex Assigned at Not on file Legal Sex Male 3:48 AM DIGITAL INTERN Gender Identity Not on file Sexual Orientation Not on file documented as of this encounter Plan of Treatment Upcoming Encounters Date Type Department Care Team (Late st Contact Info) Description 10/05/2025 3:00 PM DIGITAL INTERN Office Visit [facility] Heart and Vascular At [address] [place] [address] Cooper Paulson MD [facility]3 [facility]. [address] [place] [address] documented as of this encounter Visit Diagnoses Not on filedocumented in this encounter Care Teams Ball Machine Operator Relationship Specialty Start Date End Date Eddie Meadows MD PCP - General Internal Medicine 12/03/20 documented as of this encounter
--- OUTSIDE RECORDS SUMMARY | 2025-04-15 11:13 | XMS_ITS | Encounter Summary ---
Author Organization [facility] Address [address] [place] [address] Care Team Providers Care Professor Of Early Childhood Education Name Role Phone Eddie Meadows MD Primary Care Provider Unavailab le Encounter Details Date Type Department Care Team (Late st Contact Info) Description 10/25/2001 Emergency [facility] EMERGENCY RO[facility] L Sundar Javier MD NO ADDRESS ON FILE Er, Authorized P NO ADDRESS ON FILE CONCUSSION W/O COMA (Primary Dx) Social History Tobacco Use Types Packs/Day Years Used Date Smoking Tobacco: Never Assessed Sex and Gender Information Value Date Recorded Sex Assigned at Not on file Legal Sex Male 3:48 AM CONTRACT PARALEGAL Gender Identity Not on file Sexual Orientation Not on file documented as of this encounter Plan of Treatment Upcoming Encounters Date Type Department Care Team (Late st Contact Info) Description 10/05/2025 3:00 PM CONTRACT PARALEGAL Office Visit [facility] Heart and Vascular At [place] [address] [facility] [address] [place] [address] Cooper Paulson MD [facility]3 [facility]. [address] [place] [address] documented as of this encounter Visit Diagnoses Diagnosis Concussion with no loss of consciousness- Primary documented in this encounter Care Teams Professor Of Early Childhood Education Relationship Specialty Start Date End Date Eddie Meadows MD PCP - General Internal Medicine 12/03/20 documented as of this encounter
--- OUTSIDE RECORDS SUMMARY | 2025-04-15 11:13 | XMS_ITS | Encounter Summary ---
Author Organization [facility] Address [address] [place] [address] Care Team Providers Care Binder Selector Name Role Phone Eddie Meadows MD Primary Care Provider Unavailab le Encounter Details Date Type Department Care Team (Late st Contact Info) Description 04/08/2002 Outpatient Historical [facility] Internal Medicine [place] [address] [place] [address] Familia Slade MD Social History Tobacco Use Types Packs/Day Years Used Date Smoking Tobacco: Never Assessed Sex and Gender Information Value Date Recorded Sex Assigned at Not on file Legal Sex Male 3:48 AM RETREAD TECHNICIAN Gender Identity Not on file Sexual Orientation Not on file documented as of this encounter Plan of Treatment Upcoming Encounters Date Type Department Care Team (Late st Contact Info) Description 10/05/2025 3:00 PM RETREAD TECHNICIAN Office Visit [facility] Heart and Vascular At [address] [place] [address] Cooper Paulson MD [facility]. [address] [place] [address] documented as of this encounter Visit Diagnoses Not on filedocumented in this encounter Care Teams Binder Selector Relationship Specialty Start Date End Date Eddie Meadows MD PCP - General Internal Medicine 12/03/20 documented as of this encounter
--- OUTSIDE RECORDS SUMMARY | 2025-04-15 11:13 | XMS_ITS | Encounter Summary ---
Author Organization [facility] Address [address] [place] [address] Care Team Providers Care Inspector Watch Parts Name Role Phone Eddie Meadows MD Primary [...] on file Legal Sex Male 3:48 AM RISK MGR Gender Identity Not on file Sexual Orientation Not on file documented as of this encounter Plan of Treatment Upcoming Encounters Date Type Department Care Team (Late st Contact Info) Description 10/05/2025 3:00 PM RISK MGR Office Visit [facility] Heart and Vascular At [address] [place] [address] Cooper Paulson MD [address] [place] [address] [place] [phone] documented as of this encounter Visit Diagnoses Not on filedocumented in this encounter Care Teams Inspector Watch Parts Relationship Specialty Start Date End Date Eddie Meadows MD PCP - General Internal Medicine 12/03/20 documented as of this encounter
--- OUTSIDE RECORDS SUMMARY | 2025-04-15 11:13 | XMS_ITS | Encounter Summary ---
Author Organization [facility] Address [address] [place] [address] Care Team Providers Care Bed Machine Operator Name Role Phone Eddie Meadows MD Primary Care Provider Unavailab le Encounter Details Date Type Department Care Team (Late st Contact Info) Description 01/23/1999 Inpatient Historical [facility] PATIENT IN A BED Nikki Hdez MD [address] [facility] [place] [address] Other specified oesophagitis (Primary Dx) Social History Tobacco Use Types Packs/Day Years Used Date Smoking Tobacco: Never Assessed Sex and Gender Information Value Date Recorded Sex Assigned at Not on file Legal Sex Male 3:48 AM GEODETIC SURVEYOR TECHNOLOGIST Gender Identity Not on file Sexual Orientation Not on file documented as of this encounter Plan of Treatment Upcoming Encounters Date Type Department Care Team (Late st Contact Info) Description 10/05/2025 3:00 PM GEODETIC SURVEYOR TECHNOLOGIST Office Visit [facility] Heart and Vascular At [place] [address] [facility] [address] [place] [address] Cooper Paulson MD [address] [facility]. [address] [place] [address] documented as of this encounter Visit Diagnoses Diagnosis Other specified oesophagitis- Primary Other esophagitis documented in this encounter Care Teams Bed Machine Operator Relationship Specialty Start Date End Date Eddie Meadows MD PCP - General Internal Medicine 12/03/20 documented as of this encounter
--- OUTSIDE RECORDS SUMMARY | 2025-04-15 11:13 | XMS_ITS | Clinical Summary ---
Author Organization [facility] Address [address] [place] [address] Care Team Providers Care Kosher Dietary Service Manager Name Role Phone Unavailable Primary Care Provider Unavailabl e Source Comments [facility] Affiliates and Associated Physician Practices is amultiple site organization consisting of ambulatory clinics and hospital sitesin [place], [place], [place] and [place]. This disclosure is being madepursuant to the Care Everywhere program and may not contain all information available regarding this patient. Last updated 18.[facility] [employer] Social History Tobacco Use Types Packs/Day Years Used Date Smoking Tobacco: Never Assessed Comments Unknown Sex and Gender Information Value Date Recorded Sex Assigned at Not on file Legal Sex Female 6:11 AM PROGRAM MANAGEMENT ANALYST Gender Identity Not on file Sexual Orientation Not on file Plan of Treatment Health Maintenance Due Date Last Done Comments BONE DENSITY TESTING 1955 COLOGUARD (AGES 45-75) - COLON CA SCREENING 1955 COLON MONITORING 1955 COLONOSCOPY - COLON CA SCREENING 1955 CT COLONOGRAPHY - COLON CA SCREENING 1955 Colorectal Cancer Screening 1955 FIT - COLON CA SCREENING 1955 FLEX SIG - COLON CA SCREENING 1955 LIPID TESTING 1955 MAMMOGRAM 1955 HEPATITIS C SCREENING 05/19/1973 DTAP/TDAP/TD VACCINES (1 - Tdap) 1974 PNEUMOCOCCAL VACCINE 50+ (1 of 1 - PCV) 2005 ZOSTER VACCINE (1 of 2) 2005 DEPRESSION SCREENING 08/06/2024 COVID-19 VACCINE (3 - 2024- season) 2025 05/02/2022, 11/16/2021 INFLUENZA VACCINE (#1) 2025 3, 05/02/2022, 05/11/2021, Additional history exists Respiratory Syncytial Virus (RSV) Vaccine Pt: or over 60 yrs (1 - 1-dose 75+ series) 2030 HEPATITIS B VACCINE Aged Out No longe r eligible based on patient's age to complete this topic HIB VACCINE Aged Out No longer eligi ble based on patient's age to complete this topic HPV VACCINE Aged Out No longer eligi ble based on patient's age to complete this topic MENINGOCOCCAL (Group B) VACCINE SHARED DECISION-MAKING Aged Out No longer eligible based on patient's age to complete this topic MENINGOCOCCAL GROUPS A/C/Y/W VACCINE Aged Out No longer eligible based on patient's age to complete this topic
--- OUTSIDE RECORDS SUMMARY | 2025-04-15 11:13 | XMS_ITS | Encounter Summary ---
Author Organization [facility] Address [address] [place] [address] Care Team Providers Care Documentation Analyst Name Role Phone Eddie Meadows MD Primary Care Provider Unavailab le Encounter Details Date Type Department Care Team (Late st Contact Info) Description 12/07/2003 Outpatient Historical [facility] Internal Medicine [place] [address] [place] [address] Familia Slade MD Social History Tobacco Use Types Packs/Day Years Used Date Smoking Tobacco: Never Assessed Sex and Gender Information Value Date Recorded Sex Assigned at Not on file Legal Sex Male 3:48 AM TOP AND TRIM WORKER Gender Identity Not on file Sexual Orientation Not on file documented as of this encounter Plan of Treatment Upcoming Encounters Date Type Department Care Team (Late st Contact Info) Description 10/05/2025 3:00 PM TOP AND TRIM WORKER Office Visit [facility] Heart and Vascular At [address] [place] [address] Cooper Paulson MD [facility]. [address] [place] [address] documented as of this encounter Visit Diagnoses Not on filedocumented in this encounter Care Teams Documentation Analyst Relationship Specialty Start Date End Date Eddie Meadows MD PCP - General Internal Medicine 12/03/20 documented as of this encounter
--- OUTSIDE RECORDS SUMMARY | 2025-04-15 11:13 | XMS_ITS | Encounter Summary ---
Author Organization [facility] Address [address] [place] [address] Care Team Providers Care Geologist Petroleum Name Role Phone Eddie Meadows MD Primary Care Provider Unavailab le Encounter Details Date Type Department Care Team (Late st Contact Info) Description 06/07/2004 Outpatient Historical [facility] Internal Medicine [place] [address] [place] [address] Familia Slade MD Social History Tobacco Use Types Packs/Day Years Used Date Smoking Tobacco: Never Assessed Sex and Gender Information Value Date Recorded Sex Assigned at Not on file Legal Sex Male 3:48 AM HEADING AND PRIMING TOOL SETTER Gender Identity Not on file Sexual Orientation Not on file documented as of this encounter Plan of Treatment Upcoming Encounters Date Type Department Care Team (Late st Contact Info) Description 10/05/2025 3:00 PM HEADING AND PRIMING TOOL SETTER Office Visit [facility] Heart and Vascular At [address] [place] [address] Cooper Paulson MD [facility]3 [facility]. [address] [place] [address] documented as of this encounter Visit Diagnoses Not on filedocumented in this encounter Care Teams Geologist Petroleum Relationship Specialty Start Date End Date Eddie Meadows MD PCP - General Internal Medicine 12/03/20 documented as of this encounter
--- OUTSIDE RECORDS SUMMARY | 2025-04-15 11:13 | XMS_ITS | Encounter Summary ---
Author Organization [facility] Address [address] [place] [address] Care Team Providers Care Manager Biologics Name Role Phone Eddie Meadows MD Primary Care Provider Unavailab le Encounter Details Date Type Department Care Team (Late st Contact Info) Description 10/15/2003 Outpatient Historical [facility] Internal Medicine [place] [address] [place] [address] Familia Slade MD Social History Tobacco Use Types Packs/Day Years Used Date Smoking Tobacco: Never Assessed Sex and Gender Information Value Date Recorded Sex Assigned at Not on file Legal Sex Male 3:48 AM CARPENTRY SUPERVISOR Gender Identity Not on file Sexual Orientation Not on file documented as of this encounter Plan of Treatment Upcoming Encounters Date Type Department Care Team (Late st Contact Info) Description 10/05/2025 3:00 PM CARPENTRY SUPERVISOR Office Visit [facility] Heart and Vascular At [address] [place] [address] Cooper Paulson MD [facility]. [address] [place] [address] documented as of this encounter Visit Diagnoses Not on filedocumented in this encounter Care Teams Manager Biologics Relationship Specialty Start Date End Date Eddie Meadows MD PCP - General Internal Medicine 12/03/20 documented as of this encounter
--- OUTSIDE RECORDS SUMMARY | 2025-04-15 11:13 | XMS_ITS | Encounter Summary ---
Author Organization [facility] Address [address] [place] [address] Care Team Providers Care Civil Technician Name Role Phone Eddie Meadows MD Primary Care Provider Unavailab le Encounter Details Date Type Department Care Team (Late st Contact Info) Description 04/08/2002 Outpatient Historical [facility] Internal Medicine [place] [address] [place] [address] Familia Slade MD Social History Tobacco Use Types Packs/Day Years Used Date Smoking Tobacco: Never Assessed Sex and Gender Information Value Date Recorded Sex Assigned at Not on file Legal Sex Male 3:48 AM STABLE ATTENDANT Gender Identity Not on file Sexual Orientation Not on file documented as of this encounter Plan of Treatment Upcoming Encounters Date Type Department Care Team (Late st Contact Info) Description 10/05/2025 3:00 PM STABLE ATTENDANT Office Visit [facility] Heart and Vascular At [address] [place] [address] Cooper Paulson MD [facility]3 [facility]. [address] [place] [address] documented as of this encounter Visit Diagnoses Not on filedocumented in this encounter Care Teams Civil Technician Relationship Specialty Start Date End Date Eddie Meadows MD PCP - General Internal Medicine 12/03/20 documented as of this encounter
--- OUTSIDE RECORDS SUMMARY | 2025-04-15 11:13 | XMS_ITS | Clinical Summary ---
Author Organization [facility] Address [facility] [place] [address] Care Team Providers Care Ship Scraper Name Role Phone Unavailable Primary Care Provider [...]
--- OUTSIDE RECORDS SUMMARY | 2025-04-15 11:13 | XMS_ITS | Encounter Summary ---
Author Organization [facility] Address [address] [place] [address] Care Team Providers Care Wire Harness Design Engineer Name Role Phone Eddie Meadows MD Primary Care Provider Unavailab le Encounter Details Date Type Department Care Team (Late Contact Info) Description 04/28/2002 Outpatient Historical [facility] [place] [address] [place] [address] Courtney Hicks MD [address] [address] Social History Tobacco Use Types Packs/Day Years Used Date Smoking Tobacco: Never Assessed Sex and Gender Information Value Date Recorded Sex Assigned at Not on file Legal Sex Male 3:48 AM INTEGRATION DEVELOPER Gender Identity Not on file Sexual Orientation Not on file documented as of this encounter Plan of Treatment Upcoming Encounters Date Type Department Care Team (Late Contact Info) Description 10/05/2025 3:00 PM INTEGRATION DEVELOPER Office Visit [facility] Heart and Vascular At [address] [place] [address] Cooper Paulson MD [address] [facility]. [address] [place], [place] [id number] documented as of this encounter Visit Diagnoses Not on filedocumented in this encounter Care Teams Wire Harness Design Engineer Relationship Specialty Start Date End Date Eddie Meadows MD PCP - General Internal Medicine 12/03/20 documented as of this encounter
--- OUTSIDE RECORDS SUMMARY | 2025-04-15 11:13 | XMS_ITS | Encounter Summary ---
Author Organization [facility] Address [address] [place] [address] Care Team Providers Care Terrazzo Tile Setter Name Role Phone Eddie Meadows MD Primary Care Provider Unavailab le Encounter Details Date Type Department Care Team (Late st Contact Info) Description 03/12/1999 Outpatient Historical [facility] Internal Medicine [place] [address] [place] [address] Familia Slade MD Social History Tobacco Use Types Packs/Day Years Used Date Smoking Tobacco: Never Assessed Sex and Gender Information Value Date Recorded Sex Assigned at Not on file Legal Sex Male 3:48 AM PLUG STITCHER Gender Identity Not on file Sexual Orientation Not on file documented as of this encounter Plan of Treatment Upcoming Encounters Date Type Department Care Team (Late st Contact Info) Description 10/05/2025 3:00 PM PLUG STITCHER Office Visit [facility] Heart and Vascular At [address] [place] [address] Cooper Paulson MD [facility]. [address] [place] [address] documented as of this encounter Visit Diagnoses Not on filedocumented in this encounter Care Teams Terrazzo Tile Setter Relationship Specialty Start Date End Date Eddie Meadows MD PCP - General Internal Medicine 12/03/20 documented as of this encounter
--- OUTSIDE RECORDS SUMMARY | 2025-04-15 11:14 | XMS_ITS | Encounter Summary ---
Author Organization [facility] Address [address] [place] [address] Care Team Providers Care Roll Plugger Name Role Phone Eddie Meadows MD Primary Care Provider Unavailab le Encounter Details Date Type Department Care Team (Late st Contact Info) Description 07/02/2007 Outpatient Historical [facility] Internal Medicine [place] [address] [place] [address] Familia Slade MD Social History Tobacco Use Types Packs/Day Years Used Date Smoking Tobacco: Never Assessed Sex and Gender Information Value Date Recorded Sex Assigned at Not on file Legal Sex Male 3:48 AM MICROSOFT DEVELOPER Gender Identity Not on file Sexual Orientation Not on file documented as of this encounter Plan of Treatment Upcoming Encounters Date Type Department Care Team (Late st Contact Info) Description 10/05/2025 3:00 PM MICROSOFT DEVELOPER Office Visit [facility] Heart and Vascular At [address] [place] [address] Cooper Paulson MD [facility]. [address] [place] [address] documented as of this encounter Visit Diagnoses Not on filedocumented in this encounter Care Teams Roll Plugger Relationship Specialty Start Date End Date Eddie Meadows MD PCP - General Internal Medicine 12/03/20 documented as of this encounter
--- OUTSIDE RECORDS SUMMARY | 2025-04-15 11:14 | XMS_ITS | Clinical Summary ---
Author Organization [facility] Address [address] [place] [address] Care Team Providers Care Curing Oven Tender Name Role Phone Eddie Meadows MD Primary [...] Sprays in each nostril daily. 3 3 12/02/19 08 Active cyanocobalamin (VITAMIN B-12) 1,000 mcg Tablet, [...] intramuscular injection one time only. Active cpap medical office specialist daily. Active aspirin (ECOTRIN EC) 81 mg Tablet, Delayed Release (E.C.) Take 1 Tablet (81 mg) by mouth daily. 06/24/20 15 Active cpap medical office specialist Active econazole (SPECTAZOLE) 1 % Cream APPLY TO FEET AND IN BETWEEEN TOES DAILY 06/23/20 22 Active gabapentin (NEURONTIN) 600 mg tablet Take 600 mg by mouth 3 times daily. 07/18/20 22 Active ALPRAZolam (XANAX) 0.5 mg tabletIndicatio ns:Recurrent major depressive disorder, in partial remission TAKE 1/2 (ONE-HALF) TABLET BY MOUTH NIGHTLY NEEDED FOR ANXIETY 30 Tablet 02/03/20 23 Active tamsulosin (FLOMAX) 0.4 mg capsuleIndicati ons:Statin intolerance,CAD (coronary artery disease),Metabo lic syndrome,HTN (hypertension), Chronic prostatitis,Mix ed dyslipidemia,Go ut,Impaired fasting glucose,Depress ion with anxiety,Sleep apnea, obstructive,Demetrius ign prostatic hyperplasia with urinary obstruction,Obe sity,Anemia Take 1 capsule by mouth once daily 90 Capsule 02/01/20 23 Active ALPRAZolam (XANAX) 0.5 mg tabletIndicatio ns:Recurrent major depressive disorder, in partial remission TAKE 1/2 (ONE-HALF) TABLET BY MOUTH NIGHTLY NEEDED FOR ANXIETY 30 Tablet 02/03/20 23 Active Additional Information Patient not taking.Reported on 04/01/2025 allopurinoL (ZYLOPRIM) 300 mg tabletIndicatio ns:Statin intolerance,CAD (coronary artery disease),Metabo lic syndrome,HTN (hypertension), Mixed dyslipidemia,Go ut,Impaired fasting glucose,Depress ion with anxiety,Sleep apnea, obstructive,Demetrius ign prostatic hyperplasia with urinary obstruction,Obe sity,Anemia,Etelvina lgia due to statin Take 1 tablet by mouth once daily 90 Tablet 04/04/20 23 Active desvenlafaxine (PRISTIQ) 50 mg Extended Release 24 hour tabletIndicatio ns:Recurrent major depressive disorder, in partial remission Take 1 tablet by mouth once daily with breakfast 90 Tablet 04/19/20 23 Active hydroCHLOROthia zide (MICROZIDE) 12.5 mg capsule Take 1 capsule by mouth once daily 90 Capsule 04/19/20 23 Active nebivoloL (BYSTOLIC) 10 mg Tablet Take 1 tablet by mouth once daily 90 Tablet 3 04/19/20 23 Active pantoprazole (PROTONIX) 40 mg Tablet, Delayed Release (E.C.) Take 1 tablet by mouth once daily 90 Tablet 04/20/20 23 Active losartan (COZAAR) 100 mg tablet Take 1 tablet by mouth once daily 90 Tablet 07/01/20 23 Active predniSONE (DELTASONE) 5 mg tablet Take 15 mg by mouth daily. 01/04/20 24 Active evolocumab (Repatha SureClick) 140 mg/mL Pen Injector Inject 1 mL (140 mg) by subcutaneous injection every 2 weeks. 2 mL 11 09/10/19 25 Active nitroglycerin (NITROSTAT) 0.4 mg Tablet, Sublingual Place 1 Tablet (0.4 mg) under tongue every 5 minutes as needed for Chest Pain. 30 Tablet 3 04/01/20 25 Active nitroglycerin (NITROSTAT) 0.4 mg Tablet, Sublingual Place 1 Tablet (0.4 mg) under tongue every 5 minutes as needed for Chest Pain. 30 Tablet 3 04/30/20 17 025 Discontin ued(Reord er) Active Problems Patient Care Coordination No te Formatting of this note migh t be different from the original. Drilling Foreman - Dr. Karl Paulson Problem Noted Date [...] 09/18/2011 Metabolic syndrome 09/18/2011 HTN (hypertension) 09/18/2011 Mixed dyslipidemia 09/18/2011 Gout 09/18/2011 Impaired fasting glucose 09/18/2011 Depression with anxiety 09/18/2011 Sleep apnea, obstructive 09/18/2011 Benign prostatic hyperplasia with urinary hesita ncy 09/18/2011 Obesity 09/18/2011 Anemia 09/18/2011 Accelerated hypertension Chest pain Coronary artery disease invo lving venetie ira heart without angina pectoris Resolved Problems Problem Noted Date Diagnosed Date Resolved Date Cataract, left 08/30/2019 09/04/2019 Cataract, right 08/15/2019 09/04/2019 Statin intolerance 01/24/2016 1 ERRONEOUS ENCOUNTER--DISREGARD 02/26/2012 02/26/2012 Statin intolerance 09/18/2011 1 Myofascial pain syndrome 09/18/2011 Encounters Date Type Department Care Team Description 04/01/2025 3:20 PM CDT Office Visit [facility]3] Heart and Vascular At [address] [place] [address] Cooper Paulson MD History of coronary artery stent placement. PHILIP to RCA 06/20 in NSTEMI (Primary Dx); Primary hypertension; Mixed dyslipidemia 02/18/2025 External Device Data STL ABSTRACTION Provider, Abstract 02/17/2025 External Device Data STL ABSTRACTION Provider, Abstract 01/20/2025 External Device Data STL ABSTRACTION Provider, Abstract 01/14/2025 Telephone [facility]3] Heart and Vascular - [facility] [address] [place] [address] Cooper Paulson MD Surgical Clearance from Last 3 Months Immunizations Immunization Administration Dates Next Due (ADACEL/BOOSTRIX)(10 YR UP) TDAP VACCINE, 0.5ML, IM 06/05/2020 (AREXVY)(60 YR UP) RSV, MATT MBINANT, PROTEIN SUBUNIT RSVPREF, ADJUVANT RECONSTITUTED, 0.5 ML, PF 05/05/2023 (PFIZER)(12 YR UP) COVID-19 VACCINE - EMERGENCY USE AUTHORIZATION, MRNA, [id number](PF) 30 MCG/0.3 ML IM SUSP 05/02/2022,11/16/2021 (PNEUMOVAX [...] on file Legal Sex Male 3:48 AM TREASURY CONSULTANT Gender Identity Not on file Sexual Orientation Not on file 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 Not on file Not on file Not on f ile Last Filed Vital Signs Vital Sign Reading Time Taken Comments Blood Pressure 132/68 04/01/2025 2:54 PM CDT Pulse 78 04/01/2025 2:54 PM CDT Temperature 36.7 C (98.1 F) 10/05/2022 2:02 PM TREASURY CONSULTANT Respiratory Rate 14 09/07/2022 12:00 PM TREASURY CONSULTANT Oxygen Saturation 97% 04/01/2025 2:54 PM CDT Inhaled Oxygen Concentration - - Weight 113.9 kg (251 lb) 04/01/2025 2:54 PM CDT Height 188 cm (6' 2) 04/01/2025 2:54 PM CDT Body Mass Index 32.23 04/01/2025 2:54 PM CDT Plan of Treatment Upcoming Encounters Date Type Department Care Team (Late st Contact Info) Description 10/05/2025 3:00 PM TREASURY CONSULTANT Office Visit [facility]3] Heart and Vascular At [place] [address] [address] [facility] [address] [place] [address] Cooper Paulson MD [address] [facility]. [address] [place] [address] Health Maintenance Due Date Last Done Comments FIT-DNA Q 3 years 2000 Flex Sig/CT Colonography Q 5 years 2000 FIT/FOBT Q 1 year 07/02/2008 07/02/2007, 04/08/2002 COLORECTAL SCREENING 09/18/2018 09/18/2008 Colorectal Cancer Screening 09/18/2018 INFLUENZA VACCINE (#1) 2025 , 05/05/2023, 05/02/2022, Additional history exists COVID-19 Vaccine (2024-2 6 season) 2025 06/08/2023, 05/02/2022, 11/16/2021 Pre-Diabetes and Diabetes Screening 10/05/2025 10/05/2022, 06/23/2022, 01/04/2022, Additional history exists DTAP/TDAP/TD VACCINES (2 - T d or Tdap) 06/05/2030 06/05/2020 ZOSTER VACCINE Completed 03/17/2021, 06/05/2020 PNEUMOCOCCAL VACCINE 50+ YEARS Completed 1 , 06/05/2020, 06/05/2020 RSV VACCINE (60+ or ) Completed 05/05/2023 Medical Devices Implanted Type Area Supervisor Gluing Device Identifier Shelf Expiration Date Model / Serial / Lot Lens Io Sn60wf 17.5 - [id number] Implanted:Qty : 1 on 08/19/2019 by Sourav Alvarez MD at [facility] Right: Eye [facility] 10/04/2023 SN60WF.17 5 / [id number] / Lens Io Sn60wf 18.0 - [id number] Implanted:Qty : 1 on 09/02/2019 by Sourav Alvarez MD at [facility] Left: Eye [facility] 04/05/2024 SN60WF.18 0 / [id number] / Promus Premier-06/23 Implanted:Qty : 1 on 06/23/2015 by Cooper Paulson MD Stent Coronary [employer] - INTERVENTIONAL CA 05/10/2016 / / [id number] Description:3.5mm X 20mm PHILIP to RCA Procedures Procedure Name Priority Date/Time Associated Diagnosis Comments HEMOGLOBIN A1C Routine 10/05/2022 2:53 PM TREASURY CONSULTANT Prediabetes from Last 3 Months or Most Recently Relevant to Health Maintenance Results * HEMOGLOBIN A1C (10/05/2022 2:53 PM TREASURY CONSULTANT) HEMOGLOBIN A1C 5.5 <5.7 % of total Hgb [facility] Comment: For the purpose of screening for the presence of diabetes: <5.7% Consistent with the absence of diabetes 5.7-6.4% Consistent with increased risk for diabetes (prediabetes) > or =6.5% Consistent with diabetes This assay result is consistent with a decreased risk of diabetes. Currently, no consensus exists regarding use of hemoglobin A1c for diagnosis of diabetes in children. According to [place] Diabetes Association (ADA) guidelines, hemoglobin A1c <7.0% represents optimal control in non- diabetic patients. Different metrics may apply to specific patient populations. Standards of Medical Care in Diabetes(ADA). ESTIMATED AVERAGE GLUCOSE (MG/DL) 111 mg/dL [facility] ESTIMATED AVERAGE GLUCOSE (MMOL/L) 6.2 mmol/L [facility] Comment: Test Performed at: [facility] [address] [place] [address] KimberlyRaffaele Radha Roman Blood 10/05/2022 2:53 PM TREASURY CONSULTANT 10/05/2022 2:54 PM TREASURY CONSULTANT us Eddie Meadows MD CHEMISTRY ORDERABLES Final Resul t [facility] Organization Address City/State/ZIP Code Phone Number [facility] [phone] [place] [address] [place] [address] from Last 3 Months or Most Recently Relevant to Health Maintenance Insurance AETNA [facility] RX AETNA Medicare Part D AETNA PPO [facility] Advance Directives For more information, please contact: [phone] * Full Code (Latest Code Status on [...] 9:36 AM 06/24/2015 4:16 PM Care Teams Curing Oven Tender Relationship Specialty Start Date End Date Eddie Meadows MD PCP - General Internal Medicine 12/03/20
--- OUTSIDE RECORDS SUMMARY | 2025-04-15 11:14 | XMS_ITS | Encounter Summary ---
Author Organization [facility] Address [address] [place] [address] Care Team Providers Care Sweet Pickle Maker Name Role Phone Eddie Meadows MD Primary Care Provider Unavailab le Encounter Details Date Type Department Care Team (Late st Contact Info) Description 07/02/2007 Outpatient Historical [facility] Internal Medicine [place] [address] [place] [address] Familia Slade MD Social History Tobacco Use Types Packs/Day Years Used Date Smoking Tobacco: Never Assessed Sex and Gender Information Value Date Recorded Sex Assigned at Not on file Legal Sex Male 3:48 AM ESCROW AGENT Gender Identity Not on file Sexual Orientation Not on file documented as of this encounter Plan of Treatment Upcoming Encounters Date Type Department Care Team (Late st Contact Info) Description 10/05/2025 3:00 PM ESCROW AGENT Office Visit [facility] Heart and Vascular At [address] [place] [address] Cooper Paulson MD [facility] [facility]. [address] [place] [address] documented as of this encounter Visit Diagnoses Not on filedocumented in this encounter Care Teams Sweet Pickle Maker Relationship Specialty Start Date End Date Eddie Meadows MD PCP - General Internal Medicine 12/03/20 documented as of this encounter
--- OUTSIDE RECORDS SUMMARY | 2025-04-15 11:14 | XMS_ITS | Encounter Summary ---
Author Organization [facility] Address [address] [place] [address] Care Team Providers Care Documentum Consultant Name Role Phone Eddie Meadows MD Primary Care Provider Unavailab le Encounter Details Date Type Department Care Team (Latest Contact Info) Description 07/02/2007 Outpatient Historical [facility] [place] [facility] Familia Slade MD Essential Hypertension, Benign (Primary Dx) Social History Tobacco Use Types Packs/Day Years Used Date Smoking Tobacco: Never Assessed Sex and Gender Information Value Date Recorded Sex Assigned at Not on file Legal Sex Male 3:48 AM CUSTOM HARVESTER Gender Identity Not on file Sexual Orientation Not on file documented as of this encounter Plan of Treatment Upcoming Encounters Date Type Department Care Team (Late st Contact Info) Description 10/05/2025 3:00 PM CUSTOM HARVESTER Office Visit [facility] Heart and Vascular At [address] [place] [address] Cooper Paulson MD [facility]. [address] [place] [address] documented as of this encounter Procedures Procedure Name Priority Date/Time Associated Diagnosis Comments CBC WITH DIFFERENTIAL Routine 07/02/2007 11:16 AM CUSTOM HARVESTER CBC WITH DIFFERENTIAL Routine 07/02/2007 11:16 AM CUSTOM HARVESTER PSA Routine 07/02/2007 11:16 AM CUSTOM HARVESTER LIPID PANEL Routine 07/02/2007 11:16 AM CUSTOM HARVESTER COMPREHENSIVE METABOLIC PANEL Routine 07/02/2007 11:16 AM CUSTOM HARVESTER documented in this encounter Results * CBC WITH DIFFERENTIAL (07/02/2007 11:16 AM CUSTOM HARVESTER) NEUTROPHILS 66 45 - 70 % INTERFAC [...] K/uL INTERFACE SYSTEM 07/02/2007 11:1 6 AM CUSTOM HARVESTER Familia Slade MD HEMATOLOGY ORDERABLES Edited Performing Organization Address City/[facility] de Phone Number INTERFACE SYSTEM Refer to clinic/hospital department * CBC WITH DIFFERENTIAL (07/02/2007 11:16 AM CUSTOM HARVESTER) Pathologist [facility] WBC 6.8 4.0 - 9.8 [...] fL INTERFACE SYSTEM 07/02/2007 11:1 6 AM CUSTOM HARVESTER Familia Slade MD HEMATOLOGY ORDERABLES Edited Performing Organization Address [facility]/State/ZIP Co de Phone Number INTERFACE SYSTEM Refer to clinic/hospital department * PSA (07/02/2007 11:16 AM CUSTOM HARVESTER) PSA 1.2 0.0 - 4.0 ng/mL INTERFACE SYSTEM Comment:Performed on [employer] E170 System 07/02/2007 11:1 6 AM CUSTOM HARVESTER Familia Slade MD CHEMISTRY ORDERABLES Edited Performing Organization Address City/[facility] de Phone Number INTERFACE SYSTEM Refer to clinic/hospital department * (ABNORMAL) LIPID PANEL (07/02/2007 11:16 AM CUSTOM HARVESTER) CHOLESTEROL 209(H) 100 - 199 mg/dL INTERFACE SYSTEM TRIGLYCERIDE 172(H) 10 - 149 mg/dL INTERFACE SYSTEM HDL 34(L) 40 - 59 mg/dL INTERFACE SYSTEM CHOL/HDL RATIO 6.1(H) 2.0 - 5.0 INTER FACE SYSTEM LDL CALCULATED 141(H) <=99 mg/dL INTERFACE SYSTEM LIPID PANEL COMMENT See Below INTERFACE SYSTEM Comment: The adult ATP and pediatric NCEP classifications for lipids are available on the [facility] Intranet at: [email or web address] Select: Lab Policies and Procedures,Current Select: Lipid Panel Interpretation 07/02/2007 11:1 6 AM CUSTOM HARVESTER Familia Slade MD CHEMISTRY ORDERABLES Edited Performing Organization Address City/[facility] Co de Phone Number INTERFACE SYSTEM Refer to clinic/hospital department * (ABNORMAL) COMPREHENSIVE METABOLIC PANEL (07/02/2007 11:16 AM CUSTOM HARVESTER) GLUCOSE 101(H) 65 - 99 mg/dL INTERFACE [...] and non- Americans is available on the [facility] Intranet at: [email or web address] Select: Lab Policies and Procedures Select: Reference Ranges - GFR 07/02/2007 11:1 6 AM CUSTOM HARVESTER Familia Slade MD CHEMISTRY ORDERABLES Edited INTERFACE SYSTEM Refer to clinic/hospital department documented in this encounter Visit Diagnoses Diagnosis Essential hypertension, benign- Primary documented in this encounter Care Teams Documentum Consultant Relationship Specialty Start Date End Date Eddie Meadows MD PCP - General Internal Medicine 12/03/20 documented as of this encounter
--- OUTSIDE RECORDS SUMMARY | 2025-04-15 11:14 | XMS_ITS | Clinical Summary ---
Author Organization [facility] Address [address] [place] [address] Care Team Providers Care Police Matron Name Role Phone Marciano Gao MD Primary Care Provider + Freddie León MD Unavailable [phone] Allergies Active Allergy Reactions Criticality Noted Date Comments Amlodipine Other (See comments),Swelling Medium 09/18/2011 Leg swelling Atorvastatin Muscle pain Medium 09/18/2011 Carvedilol Other (See comments) Low 09/18/2011 Weight gain and lethergy Clonazepam Unknown 10/11/2020 Codeine Rash Medium 06/13/2019 Doxazosin Other (See comments) Low 09/18/2011 Ankle swelling Egg Derived Angioedema High 09/18/2011 Eggshell Membrane Angioedema High 10/11/2020 Ezetimibe Stomach upset Low 10/22/2017 Fenofibrate Micronized Muscle pain Medium 09/18/2011 Pitavastatin Unknown 10/11/2020 Meloxicam Unknown 10/11/2020 Metformin Nausea only Low 10/11/2020 Metoprolol Succinate Other (See comments) Low 09/18 Niacin Other (See comments) Low 09/18/2011 Flushing Quinapril Cough Low 09/18/2011 Rosuvastatin Muscle pain Medium 09/18/2011 Medications aspirin 81 mg enteric coated tablet Take 1 tablet (81 mg total) by mouth daily 5 Active cyanocobalamin (Vitamin B-12) 1,[address] under the tongue Active fluticasone propionate (FLONASE) 50 mcg/actuation nasal spray Administer 2 sprays into affected nostril(s) daily 8 Active evolocumab (Repatha SureClick) 140 mg/mL pen injector Inject 1 mL (140 mg total) under the skin every 14 (fourteen) days Active EPINEPHrine 0.3 mg/0.3 mL auto-injection syringeIndicati ons:Anaphylaxis Inject 0.3 mL (0.3 mg total) into the muscle as instructed as needed for anaphylaxis Active benzonatate (TESSALON) 100 mg capsuleIndicati ons:Cough Take 1-2 caps every 8 hours as needed 30 capsule 4 Active albuterol HFA (PROVENTIL HFA,VENTOLIN HFA,PROAIR HFA) 90 mcg/actuation inhalerIndicati ons:Acute bronchitis, unspecified organism Inhale 2 puffs every 6 (six) hours as needed for wheezing (for wheezing) 1 each 4 Active hydroCHLOROthia zide (MICROZIDE) 12.5 mg capsuleIndicati ons:Hypertensiv e heart and kidney disease without heart failure and with stage 3a chronic kidney disease (HCC) Take 1 capsule by mouth once daily 90 capsule 1 5 Active losartan (COZAAR) 100 mg tablet Take 1 tablet by mouth once daily 90 tablet 1 5 Active predniSONE (DELTASONE) 1 mg tabletIndicatio ns:Polymyalgia rheumatica Take 3 tablets by mouth once daily 60 tablet 5 Active gabapentin (NEURONTIN) 600 mg tablet TAKE 1 TABLET BY MOUTH THREE TIMES DAILY [address] (PROTONIX) 40 mg EC tabletIndicatio ns:Gastroesopha geal reflux disease without esophagitis Take 1 tablet (40 mg total) by mouth daily 90 tablet 1 5 Active desvenlafaxine ER (PRISTIQ) 100 mg 24 hr tablet Take 1 tablet (100 mg total) by mouth daily 90 tablet 1 5 Active nebivoloL (BYSTOLIC) 10 mg tablet Take 1 tablet (10 mg total) by mouth daily 100 tablet 5 Active tamsulosin (FLOMAX) 0.4 mg extended release capsule Take 1 capsule (0.4 mg total) by mouth daily 100 capsule Active ALPRAZolam (XANAX) 0.5 mg tablet Take 0.5 tablets (0.25 mg total) by mouth nightly as needed for anxiety 45 tablet Active allopurinoL (ZYLOPRIM) 300 mg tabletIndicatio ns:Idiopathic chronic gout of multiple sites without tophus Take 1 tablet (300 mg total) by mouth daily 100 tablet 5 Active allopurinoL (ZYLOPRIM) 300 mg tablet Take 1 tablet (300 mg total) by mouth daily 100 tablet 025 Discontin ued(Reord er) Active Problems Problem Noted Date Diagnosed Date Statin intolerance 12/10/2024 Assessment & Plan (12/10/2024 7:14 AM CDT): Can not tolerate statins secondary to myalgias. Chronic pain of left knee 12/10/2024 Assessment & Plan (12/10/2024 3:34 PM CDT): Will refer to ortho Statin myopathy 07/07/2024 09/18/2011 Assessment & Plan (12/10/2024 7:14 AM CDT): Cannot tolerate statins secondary to myalgias. Polymyalgia rheumatica 03/10/2024 Assessment & Plan (12/08/2024 6:59 AM CDT): Improved on prednisone. Follows with Rheumatology Assessment & Plan (06/02/2024 12:22 PM CDT): Improved on prednisone. Follows with Rheumatology Idiopathic chronic gout of multiple sites withou t tophus 12/05/2023 Assessment & Plan (12/08/2024 7:00 AM CDT): Stable on allopruinol Assessment & Plan (06/02/2024 12:23 PM CDT): Stable on allopruinol Assessment & Plan (12/05/2023 2:51 PM CDT): Stable on allopruinol Gastroesophageal reflux disease without esophagi tis 11/08/2023 Assessment & Plan (12/08/2024 7:00 AM CDT): Stable on pantoprazole Assessment & Plan (06/02/2024 12:23 PM CDT): Stable on pantoprazole Assessment & Plan (12/05/2023 2:44 PM CDT): Improved with increase pantoprazole. Would decrease pantoprazole to once a day Assessment & Plan (11/08/2023 2:47 PM CDT): Would increase pantoprazole to twice a day for one month. If no improvement will refer for EGD Generalized anxiety disorder 05/17/2023 Assessment & Plan (12/08/2024 7:00 AM CDT): Stable desvenlafaxine and aprazolam Assessment & Plan (06/02/2024 12:23 PM CDT): Stable desvenlafaxine and aprazolam Assessment & Plan (11/07/2023 9:22 AM CDT): Stable desvenlafaxine and aprazolam Assessment & Plan (05/17/2023 9:19 AM CDT): Stable desvenlafaxine and aprazolam Coronary artery disease invo [place]ving [place] heart without angina pectoris 05/15/2023 Assessment & Plan (12/08/2024 6:58 AM CDT): Stable on aspirin and Bystolic Assessment & Plan (06/02/2024 12:21 PM CDT): Stable on aspirin and Bystolic Assessment & Plan (11/07/2023 9:22 AM CDT): Stable on aspirin and Bystolic Assessment & Plan (05/15/2023 7:28 AM CDT): Stable on aspirin and Bystolic Class 1 obesity due to exces s calories with serious comorbidity and body mass index (BMI) of 33.0 to 33.9 in adult 05/15/2023 Assessment & Plan (12/08/2024 7:00 AM CDT): BMI Follow-up includes: exercise counseling. Assessment & Plan (06/02/2024 12:23 PM CDT): BMI Follow-up includes: exercise counseling. Assessment & Plan (12/04/2023 1:48 PM CDT): BMI Follow-up includes: exercise counseling. Assessment & Plan (11/07/2023 9:23 AM CDT): BMI Follow-up includes: exercise counseling. Assessment & Plan (05/15/2023 7:30 AM CDT): BMI Follow-up includes: exercise counseling. 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 04/27/2021 Assessment & Plan (12/08/2024 6:58 AM CDT): Stable on hydrochlorothiazide, losartan, and Bystolic Assessment & Plan (06/02/2024 12:21 PM CDT): Stable on hydrochlorothiazide, losartan, and Bystolic Assessment & Plan (11/07/2023 9:21 AM CDT): Stable on hydrochlorothiazide, losartan, and Bystolic Assessment & Plan (05/15/2023 7:26 AM CDT): Stable on hydrochlorothiazide, losartan, and Bystolic Recurrent major depressive disorder, in partial remission 11/29/2020 Assessment & Plan (12/08/2024 6:58 AM CDT): Stable on desvenlafaxine Assessment & Plan (06/02/2024 12:22 PM CDT): Stable on desvenlafaxine Assessment & Plan (11/07/2023 9:22 AM CDT): Stable on desvenlafaxine Assessment & Plan (05/15/2023 7:29 AM CDT): Stable on desvenlafaxine History of coronary artery stent placement 07/12 Mixed dyslipidemia 09/18/2011 Assessment & Plan (12/10/2024 7:12 AM CDT): LDL at goal on Repatha. Triglycerides were elevated last check. Unable to tolerate statin secondary to myalgias Assessment & Plan (06/02/2024 12:22 PM CDT): Stable on Repatha Assessment & Plan (11/07/2023 9:22 AM CDT): Stable on Repatha Assessment & Plan (05/17/2023 9:07 AM CDT): Stable on Repatha Benign prostatic hyperplasia with urinary hesita ncy 09/18/2011 Assessment & Plan (12/08/2024 6:59 AM CDT): Stable on tamsulosin Assessment & Plan (06/02/2024 12:22 PM CDT): Stable on tamsulosin Assessment & Plan (11/07/2023 9:22 AM CDT): Stable on tamsulosin Assessment & Plan (05/15/2023 7:29 AM CDT): Stable on tamsulosin Sleep apnea, obstructive 09/18/2011 Assessment & Plan (12/08/2024 6:59 AM CDT): Uses CPAP nightly and benefits from it. Assessment & Plan (10/28/2024 2:34 PM CDT): The patient continue to wear his CPAP at auto titrating range 10-18 cm water pressure while sleeping. His DME is Ana. The patient states he does get most of his supplies online. Assessment & Plan (06/02/2024 12:22 PM CDT): Uses CPAP nightly and benefits from it. Assessment & Plan (11/07/2023 9:22 AM CDT): Uses CPAP nightly and benefits from it. Assessment & Plan (10/23/2023 3:07 PM CDT): Due to continued symptoms, the patient will continue CPAP at 10-18 cm water pressure. Denied need for supplies. ISAAC Perez. I have sent an order for the patient's secondary CPAP machine to be set at 10 -18 cm water pressure to use as a backup CPAP. Assessment & Plan (06/14/2023 10:29 AM FASTENER SEWING MACHINE OPERATOR): The patient is currently using a ResMed CPAP set at 9-12 cm water pressure. The patient also has Respironics CPAP set at 12 cm water pressure. We have signed a release to get the sleep study from [facility]. The patient was informed he may have to recertify for CPAP therapy due to the age of his sleep study. The patient would be willing to complete a in-home nocturnal polysomnogram if required by insurance. Procedures were detailed in depth. The patient is agreeable. DME company will be Ze as a new patient. Patient is currently purchasing supplies online at [employer] He was also provided a written prescription for supplies. Assessment & Plan (05/17/2023 9:13 AM CDT): Uses CPAP nightly and benefits from it. Resolved Problems Problem Noted Date Diagnosed Date Resolved Date Acute bronchitis 05/27/2024 06/02/2024 Assessment & Plan (05/27/2024 3:22 PM CDT): Set 10 days ago. COVID was negative 3 times. Will treat with Ceftin, for cough benzonatate, for wheezing will refill albuterol. Contact our office if no improvement after treatment, develop new symptoms or feeling worse at any point. COVID-19 04/20/2024 06/02/2024 Assessment & Plan (04/20/2024 10:20 AM CDT): Self-isolate for 5 days from start of symptoms-you may end this quarantine at the end of 5 days as long as all symptoms are improving and you remain fever free for 24 hours without the use of medication such as Tylenol or ibuprofen. Please wear a mask when in public/around others for an additional 5 days. Increase fluid intake Over the counter cough suppressants such as Mucinex or Delsym recommended. I also recommend saline nasal rinses and/or deep breathing steam for congestion relief Tylenol every 8 hours as needed for fever or body aches recommended Report new or worsening symptoms Warning signs warranting immediate medical care: chest pain, trouble breathing, shortness of breath that does not improve with rest and taking deep breaths Will send molnupravir due to CKD as well as drug interactions with flomax, hydrocodone and xanax. Patient verbalized understanding and agreed to plan of care at this time. Polyarthralgia 12/05/2023 06/02/2024 Assessment & Plan (12/05/2023 2:53 PM CDT): Will check some blood work. Avoid NSAIDs. Would try tylenol. Medrol dosepak Prediabetes 01/29/2013 12/08/2024 Overview (05/15/2023): Treated with Metformin. Encounters Date Type Department Care Team Description 01/27/2025 Results Follow-Up [facility] [address] [place] [address] Marciano Gao MD Comprehensive metabolic panel, Lipid panel from Last 3 Months Immunizations Immunization Administration Dates Next Due Influenza, Quadrivalent, Rec ombinant, Egg Free, Preservative Free, Intramuscular 05/11/2021,06/05/2020 Influenza, Trivalent, High D ose, Split, Preservative Free, Intramuscular 06/04/2024 Influenza, Trivalent, IM (MDV) 05/05/2023,2021 Influenza, Unspecified 05/27/2024(Deferred: Yamile ent decision) Pfizer SARS-CoV-2 Monovalent Vaccination (12+ Yrs) PURPLE 05/02/2022,11/16/2021 Pneumococcal Conjugate PCV 13 06/05/2020 Pneumococcal Polysaccharide PPV23 05/11/2021 RSV Vaccine, Pref, Recombina nt, Subunit, Adjuvanted, PF, IM (Arexvy) 05/05/2023 Sars-cov-2 Covid-19 Mrna, Bi valent, Original/omicron Ba.1 06/08/2023 Tdap 06/05/2020 ZOSTER Recombinant 03/17/2021,06/05/2020 Surgical History Surgery Date Site/Laterality Comments REPLACEMENT TOTAL KNEE Right APPENDECTOMY 08/06/1977 - 08/05/1978 HERNIA REPAIR 08/06/2011 - 08/05/2012 CARDIAC STENT PLACEMENT 08/06/2014 - 08/05/2015 TONSILLECTOMY AND ADENOIDECTOMY NASAL FRACTURE SURGERY ANGIOPLASTY KNEE ARTHROSCOPY W/ LATERAL RELEASE CATARACT EXTRACTION COSMETIC SURGERY JOINT REPLACEMENT ABDOMINAL SURGERY Medical History Medical History Date Comments Transverse myelitis (HCC) Hypertension Back pain Coronary artery disease GERD (gastroesophageal reflux disease) Anxiety Arthritis Osteoporosis Cataract Depression Heart disease Chronic kidney disease Sleep apnea Family History Medical History Relation Name Comments Arthritis Brother Baldemar Hypertension Brother Baldemar Arthritis Father Cristofer Stroke Father Cristofer Transient ischemic attack Father Cristofer Alzheimer's disease Mother Evita Depression Mother Evita Hypertension Mother Evita Miscarriages / Stillbirths Mother Evita Stroke Mother Evita Alzheimer's disease Sister 2 [place] Depression Sister 2 Sidney Hypertension Sister 2 Sidney Relation Name Status Comments Brother Baldemar [place] Maternal Grandfather Maternal Grandmother Mother Evita Paternal Grandfather Paternal Grandmother Sister 1 Alive Sister 2 Sidney Social History Tobacco Use Types Packs/Day Years Used Date Smoking Tobacco: Never Smokeless Tobacco: Never Tobacco Cessation:Counseling Given: Not Answered AUDIT-C Answer Date Recorded Q1: How often do you have a drink containing alcohol? Never 12/10/2024 Q2: How many drinks containi ng alcohol do you have on a typical day when you are drinking? Patient does not drink Q3: How often do you have si x or more drinks on one occasion? Never 12/10/2024 PHQ-2 Answer Date Recorded PHQ-2 Total Score (If total score is 3 or more points, staff should administer the PHQ-9) 0 12/10/2024 Personal Safety Answer Date Recorded Have you ever been in or are you currently in a harmful physical or emotional relationship or is someone making you feel afraid or unsafe? Denies 12/30/2023 Sex and Gender Information Value Date Recorded Sex Assigned at Not on file Legal Sex Male 2:55 PM CDT Gender Identity Not on file Sexual Orientation Straight 06/15/2021 11 :19 AM FASTENER SEWING MACHINE OPERATOR Obstetrics History Last Filed Vital Signs Vital Sign Reading Time Taken Comments Blood Pressure 120/68 12/10/2024 3:24 PM CDT Pulse 75 12/10/2024 3:24 PM CDT Temperature 36.5 C (97.7 F) 12/10/2024 3:24 PM CDT Respiratory Rate 18 12/10/2024 3:24 PM CDT Oxygen Saturation 96% 12/10/2024 3:24 PM CDT Inhaled Oxygen Concentration - - Weight 117 kg (257 lb 14.4 oz) 12/10/2024 3:24 P M CDT Height 188 cm (6' 2) 12/10/2024 3:24 PM CDT Body Mass Index 33.11 12/10/2024 3:24 PM CDT Plan of Treatment Health Maintenance Due Date Last Done Comments Hepatitis C Screening 1955 Hepatitis B Screening 1973 Well Visit 65+ 2020 Covid-19 Vaccine (2024-2 6 season) 2025 06/08/2023, 06/08/2023, 05/02/2022, Additional history exists Influenza Vaccine (#1) 2025 , 05/05/2023, 05/02/2022, Additional history exists Depression Screening 12/10/2025 12/10/2024, 11/08/2023, 05/17/2023 Fall Risk Assessment 12/10/2025 12/10/2024, 11/08/2023, 05/17/2023 Prostate Cancer Screening-PSA 06/20/2026 06/20/2024, 05/17/2023 Colon Cancer Screening-DNA Stool 06/20/2027 06/20/20 24 DTaP/Tdap/Td Vaccine (2 - Td or Tdap) 06/05/2030 06/05/2020 Zoster Vaccine Completed 03/17/2021, 06/05/2020 Pneumococcal vaccine 65+ Completed 05/11/2021, 05/08 Procedures Procedure Name Priority Date/Time Associated Diagnosis Comments LIPID PANEL Routine 01/26/2025 7:20 AM CDT Mixed dyslipidemia COMPREHENSIVE METABOLIC PANEL Routine 01/26/2025 7:20 AM CDT 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) Mixed dyslipidemia PSA SCREEN Routine 06/20/2024 8:08 AM FASTENER SEWING MACHINE OPERATOR Prostate cancer screening STOOL DNA COLOGUARD Routine 06/20/2024 6:54 AM FASTENER SEWING MACHINE OPERATOR Colon cancer screening from Last 3 Months or Most Recently Relevant to Health Maintenance Results * (ABNORMAL) Lipid panel (01/26/2025 7:20 AM CDT) Cholesterol 99 <200 mg/dL [facility] HDL 32(L) > OR = 40 mg/dL [facility] Triglycerides 236(H) <150 mg/dL [facility] Comment: If a non-fasting specimen was collected, consider repeat triglyceride testing on a fasting specimen if clinically indicated. Park et al. J. of Clin. Lipidol. 2015;9:129-169. LDL 38 mg/dL (calc) [facility] Comment: Reference range: <100 Desirable range <100 mg/dL for primary prevention; <70 mg/dL for patients with CHD or diabetic patients with > or = 2 CHD risk factors. LDL-C is now calculated using the Miladys calculation, which is a validated novel method providing better accuracy than the Friedewald equation in the estimation of LDL-C. Kirk SS et al. SWAPNA. 2013;310(19): 5445-8851 (http://education.[employer]/faq/MRO924) Chol/HDL ratio 3.1 <5.0 (calc) [facility] Non-HDL, (LDL+VLDL) 67 <130 mg/dL (calc) [facility] Comment: For patients with diabetes plus 1 major ASCVD risk factor, treating to a non-HDL-C goal of <100 mg/dL (LDL-C of <70 mg/dL) is considered a therapeutic option. Blood 01/26/2025 7:20 AM CDT 01/26/2025 7:20 AM CDT Narrative [facility] - 01/26/2025 5:57 PM CDT FASTING:YES FASTING: YES Marciano Gao MD LAB BLOOD ORDERABLES Fin al Result [facility] [address] [place] [address] * (ABNORMAL) Comprehensive metabolic panel (01/26/2025 7:20 AM CDT) [facility] Glucose 85 65 - 99 mg/dL [facility] Comment: Fasting reference interval BUN 22 7 - 25 mg/dL [facility] Creatinine 1.49(H) 0.70 - 1.35 mg/dL [facility] eGFR 50(L) > OR = 60 mL/min/1.7 3m2 [facility] BUN/creat ratio 15 6 - 22 (calc) [facility] Sodium 139 135 - 146 mmol/L [facility] Potassium, pl 4.2 3.5 - 5.3 mmol/L [facility] Chloride 102 98 - 110 mmol/L [facility] CO2 30 20 - 32 mmol/L [facility] Calcium 9.1 8.6 - 10.3 mg/dL [facility] Protein, sr 6.1 6.1 - 8.1 g/dL [facility] Albumin 4.2 3.6 - 5.1 g/dL [facility] GLOBULIN 1.9 1.9 - 3.7 g/dL (calc) [facility] Alb/glob ratio 2.2 1.0 - 2.5 (calc) [facility] Bilirubin, total 0.5 0.2 - 1.2 mg/dL [facility] Alk phos 84 35 - 144 U/L [facility] AST 17 10 - 35 U/L [facility] ALT (SGPT) 19 9 - 46 U/L [facility] Blood 01/26/2025 7:20 AM CDT 01/26/2025 7:20 AM CDT Narrative [facility] - 01/26/2025 5:57 PM CDT FASTING:YES FASTING: YES us Marciano Gao MD LAB BLOOD ORDERABLES Fin al Result [facility] [address] [place] [address] * PSA screen (06/20/2024 8:08 AM FASTENER SEWING MACHINE OPERATOR) PSA 3.57 < OR = 4.00 ng/mL [employer]Hanna enexa Comment: The total PSA value from this assay system is standardized against the WHO standard. The test result will be approximately 20% lower when compared to the equimolar-standardized total PSA (Amando Beth). Comparison of serial PSA results should be interpreted with this fact in mind. This test was performed using the Siemens chemiluminescent method. Values obtained from different assay methods cannot be used interchangeably. PSA levels, regardless of value, should not be interpreted as absolute evidence of the presence or absence of disease. Blood 06/20/2024 8:08 AM FASTENER SEWING MACHINE OPERATOR 06/20/2024 8:08 AM FASTENER SEWING MACHINE OPERATOR Marciano Gao MD LAB BLOOD ORDERABLES Fin al Result [facility] [address] [address] * Stool DNA - Cologuard (06/20/2024 6:54 AM FASTENER SEWING MACHINE OPERATOR) Stool DNA - Cologuard Negative Negative [facility] (CLIA #:[id number]) Comment: NEGATIVE TEST RESULT. A negative Cologuard result indicates a low likelihood that a colorectal cancer (CRC) or advanced adenoma (adenomatous polyps with more advanced pre-malignant features) is present. The chance that a person with a negative Cologuard test has a colorectal cancer is less than 1 in 1500 (negative predictive value >99.9%) or has an advanced adenoma is less than 5.3% (negative predictive value 94.7%). These data are based on a prospective cross-sectional study of 10,000 individuals at average risk for colorectal cancer who were screened with both Cologuard and colonoscopy. (Sandy Mckeon al, N Engl J Med 2014;370(14):5801-5024) The normal value (reference range) for this assay is negative. COLOGUARD RE-SCREENING RECOMMENDATION: Periodic colorectal cancer screening is an important part of preventive healthcare for asymptomatic individuals at average risk for colorectal cancer. Following a negative Cologuard result, the [place] [employer] and U.S. Multi-Society Task Force screening guidelines recommend a Cologuard re-screening interval of 3 years. References: [place] [employer] Guideline for Colorectal Cancer Screening: https://www.cancer.org/cancer/txzmx-hpnwxt-jjogez/inxeisojo-ttxhpvwyq-tengwjb/ac s-rec ommendations.html.; Jorge DK, Eugenio CR, Josh MorenoK, Colorectal Cancer Screening: Recommendations for Physicians and Patients from the U.S. Multi-Society Task Force on Colorectal Cancer Screening , Am J Gastroenterology 2017; 112:7133-6940. TEST DESCRIPTION: Composite algorithmic analysis of stool DNA-biomarkers with hemoglobin immunoassay. Quantitative values of individual biomarkers are not reportable and are not associated with individual biomarker result reference ranges. Cologuard is intended for colorectal cancer screening of adults of either sex, 45 years or older, who are at average-risk for colorectal cancer (CRC). Cologuard has been approved for use by the U.S. FDA. The performance of Cologuard was established in a cross sectional study of average-risk adults aged 50-84. Cologuard performance in patients ages 45 to 49 years was estimated by sub-group analysis of near-age groups. Colonoscopies performed for a positive result may find as the most clinically significant lesion: colorectal cancer [4.0%], advanced adenoma (including sessile serrated polyps greater than or equal to 1cm diameter) [20%] or non- advanced adenoma [31%]; or no colorectal neoplasia [45%]. These estimates are derived from a prospective cross-sectional screening study of 10,000 individuals at average risk for colorectal cancer who were screened with both Cologuard and colonoscopy. (Sandy Ramos et al, N Engl J Med 2014;370(14):2552-6483.) Cologuard may produce a false negative or false positive result (no colorectal cancer or precancerous polyp present at colonoscopy follow up). A negative Cologuard test result does not guarantee the absence of CRC or advanced adenoma (pre-cancer). The current Cologuard screening interval is every 3 years. ([place] [employer] and U.S. Multi-Society Task Force). Cologuard performance data in a 10,000 patient pivotal study using colonoscopy as the reference method can be accessed at the following location: www.[employer].Nexway/results. Additional description of the Cologuard test process, warnings and precautions can be found at www.[employer]her[employer].com. Stool 06/20/2024 6:54 AM FASTENER SEWING MACHINE OPERATOR 06/21/2024 12:05 PM FASTENER SEWING MACHINE OPERATOR Marciano Gao MD LAB BODY FLUIDS AND STOO LS ORDERABLES Final Result [facility] (CLIA #:[id number]) [place] [address] from Last 3 Months or Most Recently Relevant to Health Maintenance Insurance [place] [id number] [employer] [place] [id number] [employer] [place] [id number] [employer] Care Teams Police Matron Relationship Specialty Start Date End Date Marciano Gao MD [address] [place] [address] PCP - General Internal Medicine 05/17/23 Freddie León MD [address] [place] [address] Consulting Physician Rheumatology 01/03/24
--- OUTSIDE RECORDS SUMMARY | 2025-04-15 11:14 | XMS_ITS | Encounter Summary ---
Author Organization [facility] Address [address] [place] [address] Care Team Providers Care Customer Services Supervisor Name Role Phone Eddie Meadows MD Primary Care Provider Unavailab le Encounter Details Date Type Department Care Team (Late st Contact Info) Description 07/04/2005 Outpatient Historical [facility] Internal Medicine [place] [address] [place] [address] Familia Slade MD Social History Tobacco Use Types Packs/Day Years Used Date Smoking Tobacco: Never Assessed Sex and Gender Information Value Date Recorded Sex Assigned at Not on file Legal Sex Male 3:48 AM BOTTLE CLEANER Gender Identity Not on file Sexual Orientation Not on file documented as of this encounter Plan of Treatment Upcoming Encounters Date Type Department Care Team (Late st Contact Info) Description 10/05/2025 3:00 PM BOTTLE CLEANER Office Visit [facility] Heart and Vascular At [address] [place] [address] Cooper Paulson MD [facility] [place]. [address] [place] [address] documented as of this encounter Visit Diagnoses Not on filedocumented in this encounter Care Teams Customer Services Supervisor Relationship Specialty Start Date End Date Eddie Meadows MD PCP - General Internal Medicine 12/03/20 documented as of this encounter
[2025-04-15 11:42] LABS: Hematocrit 41.2 % (42.0-52.0); Hemoglobin 13.6 g/dL (14.0-18.0); Immature Granulocyte Percent A 0.5 % (0-0.5); Lymphocytes Absolute Auto 1.11 K/mm3 (0.9-3.2); Mean Corpuscular HGB Conc 33.0 g/dl (32-36); Mean Corpuscular Hemoglobin 31.9 pg (26-34); Mean Corpuscular Volume 96.5 fl (80-100); Nucleated Red Blood Cells Absolute Auto 0.000 K/mm3 (0.0-0.012); Nucleated Red Blood Cells Perc 0.0 % (0.0-0.2); Platelet Count Result 214 k/mm3 (150-375); Red Blood Count 4.27 M/mm3 (4.6-6.20); White Blood Count 8.6 K/mm3 (4.5-10.0)
[2025-04-15 11:55] LABS: INR 0.9; Prothrombin Time 12.6 Seconds (11.1-14.7)
[2025-04-15 11:56] LABS: Partial Thromboplastin Time 26.2 Seconds (22.3-36.8)
[2025-04-15 11:58] LABS: Albumin Level 4.0 g/dL (3.5-5.1); Hemoglobin A1C 5.7 % (<5.7)
[2025-04-15 12:01] LABS: Anion Gap 8 mmol/L (4-12); Blood Urea Nitrogen 19 mg/dL (9-20); Calcium 8.7 mg/dL (8.4-10.2); Carbon Dioxide 28 mmol/L (22-30); Chloride 100 mmol/L (98-107); Estimated Glomerular Filt Rate 46; Glucose 97 mg/dL (65-110); Potassium 4.4 mmol/L (3.4-5.0); Sodium 136 mmol/L (137-145)
[2025-04-15 12:52] LABS: MRSA (PCR) NOT DETECTED (NOT DETECTE)
== END 2025-04-15 10:19 | disposition home or self-care (01) ==
LOC: ANHSURGERY 10:22
PROVIDERS: Anesthesiology; PCP Internal Medicine; Visit Provider Orthopaedic Surgery
DX: M17.12 Unilateral primary osteoarthritis, left knee (principal); I13.10 Hypertensive heart and chronic kidney disease without heart failure, with stage 1 through stage 4 chronic kidney disease, or unspecified chronic kidney disease; E78.5 Hyperlipidemia, unspecified; I10 Essential (primary) hypertension; I25.10 Atherosclerotic heart disease of native coronary artery without angina pectoris
CPT/HCPCS: 36415; 80048; 80307; 82040; 83036; 85025; 85610; 85730; 87641; 93005

== ENCOUNTER 2025-05-12 00:47 | Day surgery (SDC) | payer MEDICARE, SELFPAY ==
[2025-04-15 10:34] VITALS: BP 123/64; PULSE 63; RESP 14; TEMP 36.9; O2SAT 94; BMI 32.5
--- NOTE | 2025-04-15 10:57 | PC.NURSE ---
Addendum entered by Simran Garcia RN 04/15/25 11:11: Pt to bring CPAP w him that night too for overnight JRRN Original Note: Report to the Outpatient Waiting Room, entrance under the green pavilion located off [facility], at time __0600am on date ___05/12/25____. Planned Procedure Time: ___0730am .? Time changes happen often and if your time is changed the preop area will call you the afternoon before. - You and your visitor will be asked to self-screen and do not enter if you have any COVID symptoms. Please call surgeon if you need to reschedule. - A mask is optional within the hospital at this time. Patients may have clear liquids (water, carbonated beverages, clear teas, apple juice) until 3 hours prior to surgery with a maximum of 20 ounces. - No food from midnight until time of surgery and no smoking, or chewing tobacco (or any form of nicotine). No chewing gum, candy or mints. (0430am) Take only the following medications with a SIP of water on the morning of surgery: ____Desvenlafexine, Gabapentin, Nebivolol, and Prednisone. Tylenol as needed DO NOT STOP ANY OF YOUR OTHER PRESCRIPTION MEDICATIONS PRIOR TO SURGERY EXCEPT THE FOLLOWING Hold all vitamins and supplements for 3 days per anesthesiologist.Date of last dose is 05/08/25. Medications to discontinue per physician Hold Aspirin for 7 days prior per [place] Date to take last dose 05/04/25 Please no make-up, nail bahamian, hairspray, perfume, deodorant, or body powder the day of surgery.? No jewelry (including any body piercings) or valuables the day of surgery, leave them at home.? Please take a shower or bath the night before, or the morning of, surgery with an antibacterial soap.?(GOLD DIAL) Wear comfortable, loose fitting clothing.? Bring overnight Bag, walker, tennis shoes, and other needed stuff - Jewelry must be removed prior to entering the operating room.? Rings and piercings that are not removed may be cut off. - The hospital will not accept responsibility for valuables.? - Please leave all valuables, including medications, at home the day of surgery. If you are going home after surgery, a licensed school bus driver must drive you home.? - NO public transportation without another adult if you receive anesthesia. - We recommend that an adult stay with you for 24 hours following discharge. - We also recommend that you do not drive, make important decision, drink alcoholic beverages, or take any drugs that were not prescribed by your health care provider for at least 24 hours after your discharge time. Follow any additional instructions given to you from your surgeon. Telephone instructions given to __Patient and and asked if any additional questions and then verbalized understanding. Patient advised to call surgeon office or pre surgery nurse liaison [phone] if any additional questions.
[2025-05-12] VITALS (13 sets, daily range): BP systolic 113–135; BP diastolic 65–73; PULSE 65–80; RESP 12–20; TEMP 36.2–37.2; O2SAT 95–100
--- NOTE | ~2025-05-12 | XR_ITS ---
EXAMINATION: [id number] DATE: 05/12/2025 10:19 INDICATION: Postoperative evaluation following left total knee arthroplasty. TECHNIQUE: Anteroposterior and lateral views of the left knee were obtained. COMPARISON: None. FINDINGS: Left total knee arthroplasty with patellar resurfacing appears well seated and in near anatomic alignment. No fractures identified. Expected postoperative subcutaneous and intra-articular gas. IMPRESSION: 1. Left total knee arthroplasty, negative for postoperative purposes. Reviewed, dictated and finalized at location A.
--- OUTSIDE RECORDS SUMMARY | 2025-05-12 00:50 | XMS_ITS | Clinical Summary ---
Author Organization [facility] Address Formerly [facility] [place] [address] Care Team Providers Care Geothermal Heat Pump Machinist Name Role Phone Unavailable Primary Care Provider [...] Vaccines (1 of 2) 2005 COVID-19 Vaccine (1 - 2023-2 5 season) 2025 Influenza Adult (#1) 2025 RSV Immunization or 60+ Years (1 - [...]
--- OUTSIDE RECORDS SUMMARY | 2025-05-12 00:51 | XMS_ITS | Encounter Summary ---
Author Organization [facility] Address [address] [place] [address] Care Team Providers Care Laborer Construction Or Leak Gang Name Role Phone Eddie Meadows MD Primary Care Provider Unavailab le Encounter Details Date Type Department Care Team (Late Contact Info) Description 04/28/2002 Outpatient Historical [facility] Allergy and Immunology [place] [address] [place] [address] Courtney Hicks MD [address] [address] Social History Tobacco Use Types Packs/Day Years Used Date Smoking Tobacco: Never Assessed Sex and Gender Information Value Date Recorded Sex Assigned at Not on file Legal Sex Male 3:48 AM MEDICAL CORPS OFFICER Gender Identity Not on file Sexual Orientation Not on file documented as of this encounter Plan of Treatment Upcoming Encounters Date Type Department Care Team (Late Contact Info) Description 10/05/2025 3:00 PM MEDICAL CORPS OFFICER Office Visit [facility] Heart and Vascular At [address] [place] [address] Cooper Paulson MD [address] [facility]. [address] [place], [place] [id number] documented as of this encounter Visit Diagnoses Not on filedocumented in this encounter Care Teams Laborer Construction Or Leak Gang Relationship Specialty Start Date End Date Eddie Meadows MD PCP - General Internal Medicine 12/03/20 documented as of this encounter
--- OUTSIDE RECORDS SUMMARY | 2025-05-12 00:51 | XMS_ITS | Encounter Summary ---
Author Organization [facility] Address [address] [place] [address] Care Team Providers Care Electric Train Driver Name Role Phone Eddie Meadows MD [...] on file Legal Sex Male 3:48 AM SKIN LIFTER BACON Gender Identity Not on file Sexual Orientation Not on file documented as of this encounter Plan of Treatment Upcoming Encounters Date Type Department Care Team (Late st Contact Info) Description 10/05/2025 3:00 PM SKIN LIFTER BACON Office Visit [facility] Heart and Vascular At [address] [place] [address] Cooper Paulson MD [address] [place] [address] [place] [id number] documented as of this encounter Visit Diagnoses Not on filedocumented in this encounter Care Teams Electric Train Driver Relationship Specialty Start Date End Date Eddie Meadows MD PCP - General Internal Medicine 12/03/20 documented as of this encounter
--- OUTSIDE RECORDS SUMMARY | 2025-05-12 00:51 | XMS_ITS | Encounter Summary ---
Author Organization [facility] Address [address] [place] [address] Care Team Providers Care Forming Process Worker Name Role Phone Eddie Meadows MD Primary Care Provider Unavailab le Encounter Details Date Type Department Care Team (Late st Contact Info) Description 04/22/2002 Outpatient Historical [facility] Serv. (Adt Cardiology-) [facility] [place] [address] Eddie Diaz Social History Tobacco Use Types Packs/Day Years Used Date Smoking Tobacco: Never Assessed Sex and Gender Information Value Date Recorded Sex Assigned at Not on file Legal Sex Male 3:48 AM HEAD OPERATOR Gender Identity Not on file Sexual Orientation Not on file documented as of this encounter Plan of Treatment Upcoming Encounters Date Type Department Care Team (Late st Contact Info) Description 10/05/2025 3:00 PM HEAD OPERATOR Office Visit [facility] Heart and Vascular At [facility] [address] [facility] [address] [place] [address] Cooper Paulson MD [address] [facility]. [address] [place] [address] documented as of this encounter Visit Diagnoses Not on filedocumented in this encounter Care Teams Forming Process Worker Relationship Specialty Start Date End Date Eddie Meadows MD PCP - General Internal Medicine 12/03/20 documented as of this encounter
--- OUTSIDE RECORDS SUMMARY | 2025-05-12 00:51 | XMS_ITS | Encounter Summary ---
Author Organization [facility] Address [address] [place] [address] Care Team Providers Care Police Commissioner Name Role Phone Eddie Meadows MD Primary Care Provider Unavailab le Encounter Details Date Type Department Care Team (Late st Contact Info) Description 01/23/1999 Inpatient Historical [facility] PAT[facility] IN A BED Nikki Hdez MD [address] [facility] [place] [address] Other specified oesophagitis (Primary Dx) Social History Tobacco Use Types Packs/Day Years Used Date Smoking Tobacco: Never Assessed Sex and Gender Information Value Date Recorded Sex Assigned at Not on file Legal Sex Male 3:48 AM SENIOR GEOLOGIST Gender Identity Not on file Sexual Orientation Not on file documented as of this encounter Plan of Treatment Upcoming Encounters Date Type Department Care Team (Late st Contact Info) Description 10/05/2025 3:00 PM SENIOR GEOLOGIST Office Visit [facility] Heart and Vascular At [place] [address] [address] [facility] [address] [place] [address] Cooper Paulson MD [address] [facility]. [address] [place] [address] documented as of this encounter Visit Diagnoses Diagnosis Other specified oesophagitis- Primary Other esophagitis documented in this encounter Care Teams Police Commissioner Relationship Specialty Start Date End Date Eddie Meadows MD PCP - General Internal Medicine 12/03/20 documented as of this encounter
--- OUTSIDE RECORDS SUMMARY | 2025-05-12 00:51 | XMS_ITS | Encounter Summary ---
Author Organization [facility] Address [address] [place] [address] Care Team Providers Care Water Reclamation Systems Operator Name Role Phone Eddie Meadows MD Primary Care Provider Unavailab le Encounter Details Date Type Department Care Team (Late st Contact Info) Description 07/04/2005 Outpatient Historical [facility] Internal Medicine [place] [address] [place] [address] Familia Slade MD Social History Tobacco Use Types Packs/Day Years Used Date Smoking Tobacco: Never Assessed Sex and Gender Information Value Date Recorded Sex Assigned at Not on file Legal Sex Male 3:48 AM GREIGE GOODS INSPECTOR Gender Identity Not on file Sexual Orientation Not on file documented as of this encounter Plan of Treatment Upcoming Encounters Date Type Department Care Team (Late st Contact Info) Description 10/05/2025 3:00 PM GREIGE GOODS INSPECTOR Office Visit [facility] Heart and Vascular At [address] [place] [address] Cooper Paulson MD [facility]. [address] [place] [address] documented as of this encounter Visit Diagnoses Not on filedocumented in this encounter Care Teams Water Reclamation Systems Operator Relationship Specialty Start Date End Date Eddie Meadows MD PCP - General Internal Medicine 12/03/20 documented as of this encounter
--- OUTSIDE RECORDS SUMMARY | 2025-05-12 00:51 | XMS_ITS | Encounter Summary ---
Author Organization [facility] Address [address] [place] [address] Care Team Providers Care Admin Asst Name Role Phone Eddie Meadows MD Primary Care Provider Unavailab le Encounter Details Date Type Department Care Team (Late st Contact Info) Description 01/29/1999 Outpatient Historical [facility] Internal Medicine [facility] and [address] [place] [address] Avis Allen MD [address] [address] Social History Tobacco Use Types Packs/Day Years Used Date Smoking Tobacco: Never Assessed Sex and Gender Information Value Date Recorded Sex Assigned at Not on file Legal Sex Male 3:48 AM BALER Gender Identity Not on file Sexual Orientation Not on file documented as of this encounter Plan of Treatment Upcoming Encounters Date Type Department Care Team (Late st Contact Info) Description 10/05/2025 3:00 PM BALER Office Visit [facility] Heart and Vascular At [address] [place] [address] Cooper Paulson MD [facility]. [address] [place] [address] documented as of this encounter Visit Diagnoses Not on filedocumented in this encounter Care Teams Admin Asst Relationship Specialty Start Date End Date Eddie Meadows MD PCP - General Internal Medicine 12/03/20 documented as of this encounter
--- OUTSIDE RECORDS SUMMARY | 2025-05-12 00:51 | XMS_ITS | Encounter Summary ---
Author Organization [facility] Address [address] [place] [address] Care Team Providers Care Caretaker Grounds Name Role Phone Eddie Meadows MD Primary Care Provider Unavailab le Encounter Details Date Type Department Care Team (Late st Contact Info) Description 05/05/2025 Results Follow-Up [facility] Heart and Vascular [place] [address] [place] [address] [place] [address] [place] [address] ALT, LIPID PANEL Social History Tobacco Use Types Packs/Day Years Used Date Smoking Tobacco: Never Smokeless Tobacco: Never Alcohol Use Standard Drinks/Week Comments Yes 0 (1 standard drink = 0.6 oz pur e alcohol) moderate Sex and Gender Information Value Date Recorded Sex Assigned at Not on file Legal Sex Male 3:48 AM DIPPER OPERATOR Gender Identity Not on file Sexual Orientation Not on file 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 [place], [place] [id number] documented as of this encounter Visit Diagnoses Not on filedocumented in this encounter Care Teams Caretaker Grounds Relationship Specialty Start Date End Date Eddie Meadows MD PCP - General Internal Medicine 12/03/20 documented as of this encounter
--- OUTSIDE RECORDS SUMMARY | 2025-05-12 00:51 | XMS_ITS | Clinical Summary ---
Author Organization [facility] Address [address] [place] [address] Care Team Providers Care Ballet Company Artistic Director Name Role Phone Marciano Gao MD Primary Care Provider + Freddie León MD Unavailable [phone] Allergies Active Allergy Reactions Criticality Noted Date [...] days Active EPINEPHrine 0.3 mg/0.3 mL auto-injection syringeIndicatio ns:Anaphylaxis Inject 0.3 mL (0.3 mg total) into the muscle as instructed as needed for anaphylaxis Active benzonatate (TESSALON) 100 mg capsuleIndicatio ns:Cough Take 1-2 caps every 8 hours as needed 30 capsule 4 Active albuterol HFA (PROVENTIL HFA,VENTOLIN HFA,PROAIR HFA) 90 mcg/actuation inhalerIndicatio ns:Acute bronchitis, unspecified organism Inhale 2 puffs every 6 (six) hours as needed for wheezing (for wheezing) 1 each 4 Active hydroCHLOROthiaz estrada (MICROZIDE) 12.5 mg capsuleIndicatio ns: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) Take 1 capsule by mouth once daily 90 capsule 1 5 Active losartan (COZAAR) 100 mg tablet Take 1 tablet by mouth once daily 90 tablet 1 5 Active predniSONE (DELTASONE) 1 mg tabletIndication s:Polymyalgia rheumatica Take 3 tablets by mouth once daily 60 tablet 5 Active gabapentin (NEURONTIN) 600 mg tablet TAKE 1 TABLET BY MOUTH THREE TIMES DAILY 270 [address] (PROTONIX) 40 mg EC tabletIndication s:Gastroesophage al reflux disease without esophagitis Take 1 tablet [...] mg total) by mouth daily 100 capsule 5 Active ALPRAZolam (XANAX) 0.5 mg tablet Take 0.5 tablets (0.25 mg total) by mouth nightly as needed for anxiety 45 tablet 5 Active allopurinoL (ZYLOPRIM) 300 mg tabletIndication s:Idiopathic chronic gout of multiple sites without tophus Take 1 tablet (300 mg total) by mouth daily 100 tablet 5 Active Active Problems Problem Noted Date Diagnosed Date [...] and aprazolam Coronary artery disease invo lving redding heart without angina pectoris 05/15/2023 Assessment & [...] CPAP. Assessment & Plan (06/14/2023 10:29 AM CIGARETTE TESTER): The patient is currently using a ResMed CPAP set at 9-12 cm water pressure. The patient also has Respironics CPAP set at 12 cm water pressure. We have signed a release to get [facility]. The patient was informed he may have to recertify for CPAP therapy due to the age of his sleep study. The patient would be willing to complete a in-home nocturnal polysomnogram if required by insurance. Procedures were detailed in depth. The patient is agreeable. DME company will be Ze as a new patient. Patient is currently purchasing supplies online at [email or web address] He was also provided a written prescription [...] 01/29/2013 12/08/2024 Overview (05/15/2023): Treated with Metformin. Immunizations Immunization Administration Dates Next Due Influenza, Quadrivalent, Rec ombinant, Egg Free, Preservative Free, Intramuscular 05/11/2021,06/05/2020 Influenza, Trivalent, High D ose, Split, Preservative Free, Intramuscular 06/04/2024 Influenza, Trivalent, IM (MDV) 05/05/2023,2021 Influenza, Unspecified 05/27/2024(Deferred: Yamile ent decision) RecordSetter SARS-CoV-2 Monovalent Vaccination (12+ Yrs) PURPLE 05/02/2022,11/16/2021 [...] Sidney Relation Name Status Comments Brother Baldemar Father Cristofer Maternal Grandfather Maternal Grandmother Mother Evita Paternal [...] Sexual Orientation Straight 06/15/2021 11 :19 AM CIGARETTE TESTER Obstetrics History Last Filed Vital Signs Vital [...] Procedure Name Priority Date/Time Associated Diagnosis Comments PSA SCREEN Routine 06/20/2024 8:08 AM CIGARETTE TESTER Prostate cancer screening STOOL DNA COLOGUARD Routine 06/20/2024 6:54 AM CIGARETTE TESTER Colon cancer screening from Last 3 Months or Most Recently Relevant to Health Maintenance Results * PSA screen (06/20/2024 8:08 AM CIGARETTE TESTER) PSA 3.57 < OR = 4.00 ng/mL [employer] Comment: The total PSA value from this assay system is standardized against the WHO standard. The test result will be approximately 20% lower when compared to the equimolar-standardized total PSA (Amando [place]). Comparison of serial PSA results should be interpreted with this fact in mind. This test was performed using the Siemens chemiluminescent method. Values obtained from different assay methods cannot be used interchangeably. PSA levels, regardless of value, should not be interpreted as absolute evidence of the presence or absence of disease. Blood 06/20/2024 8:08 AM CIGARETTE TESTER 06/20/2024 8:08 AM CIGARETTE TESTER us Marciano Gao MD LAB BLOOD ORDERABLES Fin al Result [employer] [address] [id number] * Stool DNA - Cologuard (06/20/2024 6:54 AM CIGARETTE TESTER) Stool DNA - Cologuard Negative Negative [facility] (CLIA #:[id number]) Comment: NEGATIVE TEST RESULT. A negative Cologuard [...] (Sandy Mckeon al, N Engl J Med 2014;370(14):1910-8775) The normal value (reference range) for this assay is negative. COLOGUARD RE-SCREENING RECOMMENDATION: Periodic colorectal cancer screening is an important part of preventive healthcare for asymptomatic individuals at average risk for colorectal cancer. Following a negative Cologuard result, the [employer] [employer] Society and U.S. Multi-Society Task Force screening guidelines recommend a Cologuard re-screening interval of 3 years. References: [employer] [employer] Guideline for Colorectal Cancer Screening: https://www.cancer.org/cancer/ynsdj-mgqmqt-gbhbth/omvswnzck-sxptbkeph-rywqssc/ac s-rec ommendations.html.; Jorge DK, Eugenio CR, Josh MorenoK, Colorectal Cancer Screening: Recommendations for Physicians and Patients from the U.S. Multi-Society Task Force on Colorectal Cancer Screening , Am J Gastroenterology 2017; 112:7207-8179. TEST DESCRIPTION: Composite algorithmic analysis of stool [...] (Sandy Mckeon al, N Engl J Med 2014;370(14):9505-3549.) Cologuard may produce a false negative or false positive result (no colorectal cancer or precancerous polyp present at colonoscopy follow up). A negative Cologuard test result does not guarantee the absence of CRC or advanced adenoma (pre-cancer). The current Cologuard screening interval is every 3 years. ([place] [employer] Society and U.S. Multi-Society Task Force). Cologuard performance data in a 10,000 patient pivotal study using colonoscopy as the reference method can be accessed at the following location: www.[employer].GRID/results. Additional description of the Cologuard test process, warnings and precautions can be found at www.ConnectSolutionsrd.com. Stool 06/20/2024 6:54 AM CIGARETTE TESTER 06/21/2024 12:05 PM CIGARETTE TESTER Marciano Gao MD LAB BODY FLUIDS AND STOO LS ORDERABLES Final Result [employer] (CLIA #:[id number]) [place] [address] from Last 3 Months or Most Recently Relevant to Health Maintenance Insurance [facility] AETNA MEDICARE AETNA MEDICARE Care Teams Ballet Company Artistic Director Relationship Specialty Start Date End Date Marciano Gao MD [address] [place] [id number] PCP - General Internal Medicine 05/17/23 Freddie León MD [address] [place] [address] Consulting Physician Rheumatology 01/03/24
--- OUTSIDE RECORDS SUMMARY | 2025-05-12 00:51 | XMS_ITS | Encounter Summary ---
Author Organization [facility] Address [address] [place] [address] Care Team Providers Care Blood Bank Assistant Name Role Phone Eddie Meadows MD Primary Care Provider Unavailab le Encounter Details Date Type Department Care Team (Late st Contact Info) Description 07/02/2007 Outpatient Historical [facility] Internal Medicine [place] [address] [place] [address] Familia Slade MD Social History Tobacco Use Types Packs/Day Years Used Date Smoking Tobacco: Never Assessed Sex and Gender Information Value Date Recorded Sex Assigned at Not on file Legal Sex Male 3:48 AM BINGO FLOATER Gender Identity Not on file Sexual Orientation Not on file documented as of this encounter Plan of Treatment Upcoming Encounters Date Type Department Care Team (Late st Contact Info) Description 10/05/2025 3:00 PM BINGO FLOATER Office Visit [facility] Heart and Vascular At [address] [place] [address] Cooper Paulson MD [facility]. [address] [place] [address] documented as of this encounter Visit Diagnoses Not on filedocumented in this encounter Care Teams Blood Bank Assistant Relationship Specialty Start Date End Date Eddie Meadows MD PCP - General Internal Medicine 12/03/20 documented as of this encounter
--- OUTSIDE RECORDS SUMMARY | 2025-05-12 00:51 | XMS_ITS | Encounter Summary ---
Author Organization [facility] Address [address] [place] [address] Care Team Providers Care Chassis Inspector Name Role Phone Eddie Meadows MD Primary Care Provider Unavailab le Encounter Details Date Type Department Care Team (Latest Contact Info) Description 07/02/2007 Outpatient Historical [facility]) Familia Slade MD Essential Hypertension, Benign (Primary Dx) Social History Tobacco Use Types Packs/Day Years Used Date Smoking Tobacco: Never Assessed Sex and Gender Information Value Date Recorded Sex Assigned at Not on file Legal Sex Male 3:48 AM EXPLOSIVE OPERATOR GRENADE Gender Identity Not on file Sexual Orientation Not on file documented as of this encounter Plan of Treatment Upcoming Encounters Date Type Department Care Team (Late st Contact Info) Description 10/05/2025 3:00 PM EXPLOSIVE OPERATOR GRENADE Office Visit [facility] Heart and Vascular At [address] [place] [address] Cooper Paulson MD [facility]. [address] [place] [address] documented as of this encounter Procedures Procedure Name Priority Date/Time Associated Diagnosis Comments CBC WITH DIFFERENTIAL Routine 07/02/2007 11:16 AM EXPLOSIVE OPERATOR GRENADE CBC WITH DIFFERENTIAL Routine 07/02/2007 11:16 AM EXPLOSIVE OPERATOR GRENADE PSA Routine 07/02/2007 11:16 AM EXPLOSIVE OPERATOR GRENADE LIPID PANEL Routine 07/02/2007 11:16 AM EXPLOSIVE OPERATOR GRENADE COMPREHENSIVE METABOLIC PANEL Routine 07/02/2007 11:16 AM EXPLOSIVE OPERATOR GRENADE documented in this encounter Results * CBC WITH DIFFERENTIAL (07/02/2007 11:16 AM EXPLOSIVE OPERATOR GRENADE) NEUTROPHILS 66 45 - 70 % INTERFAC [...] K/uL INTERFACE SYSTEM 07/02/2007 11:1 6 AM EXPLOSIVE OPERATOR GRENADE Familia Slade MD HEMATOLOGY ORDERABLES Edited Performing Organization Address City/[facility] de Phone Number INTERFACE SYSTEM Refer to clinic/hospital department * CBC WITH DIFFERENTIAL (07/02/2007 11:16 AM EXPLOSIVE OPERATOR GRENADE) Pathologist [facility] [...] fL INTERFACE SYSTEM 07/02/2007 11:1 6 AM EXPLOSIVE OPERATOR GRENADE Familia Slade MD HEMATOLOGY ORDERABLES Edited Performing Organization Address [facility]/State/ZIP Co de Phone Number INTERFACE SYSTEM Refer to clinic/hospital department * PSA (07/02/2007 11:16 AM EXPLOSIVE OPERATOR GRENADE) PSA 1.2 0.0 - 4.0 ng/mL INTERFACE SYSTEM Comment:Performed on [employer] E170 System 07/02/2007 11:1 6 AM EXPLOSIVE OPERATOR GRENADE Familia Slade MD CHEMISTRY ORDERABLES Edited Performing Organization Address City/[facility] de Phone Number INTERFACE SYSTEM Refer to clinic/hospital department * (ABNORMAL) LIPID PANEL (07/02/2007 11:16 AM EXPLOSIVE OPERATOR GRENADE) CHOLESTEROL 209(H) 100 - 199 mg/dL INTERFACE SYSTEM TRIGLYCERIDE 172(H) 10 - 149 mg/dL INTERFACE SYSTEM HDL 34(L) 40 - 59 mg/dL INTERFACE SYSTEM CHOL/HDL RATIO 6.1(H) 2.0 - 5.0 INTER FACE SYSTEM LDL CALCULATED 141(H) <=99 mg/dL INTERFACE SYSTEM LIPID PANEL COMMENT See Below INTERFACE SYSTEM Comment: The adult ATP and pediatric NCEP classifications for lipids are available on the [facility] Intranet at: [email or web address] Select: Lab Policies and Procedures,Current Select: Lipid Panel Interpretation 07/02/2007 11:1 6 AM EXPLOSIVE OPERATOR GRENADE Familia Slade MD CHEMISTRY ORDERABLES Edited Performing Organization Address City/[facility] Co de Phone Number INTERFACE SYSTEM Refer to clinic/hospital department * (ABNORMAL) COMPREHENSIVE METABOLIC PANEL (07/02/2007 11:16 AM EXPLOSIVE OPERATOR GRENADE) GLUCOSE 101(H) 65 - 99 mg/dL INTERFACE [...] and non- Americans is available on the [facility] Intranet at: [email or web address] Select: Lab Policies and Procedures Select: Reference Ranges - GFR 07/02/2007 11:1 6 AM EXPLOSIVE OPERATOR GRENADE Familia Slade MD CHEMISTRY ORDERABLES Edited INTERFACE SYSTEM Refer to clinic/hospital department documented in this encounter Visit Diagnoses Diagnosis Essential hypertension, benign- Primary documented in this encounter Care Teams Chassis Inspector Relationship Specialty Start Date End Date Eddie Meadows MD PCP - General Internal Medicine 12/03/20 documented as of this encounter
--- OUTSIDE RECORDS SUMMARY | 2025-05-12 00:51 | XMS_ITS | Encounter Summary ---
Author Organization [facility] Address [address] [place] [address] Care Team Providers Care Educational Fundraising Director Name Role Phone Eddie Meadows MD Primary Care Provider Unavailab le Encounter Details Date Type Department Care Team (Late st Contact Info) Description 10/31/2004 Outpatient Historical [facility] Internal Medicine [place] [address] [place] [address] Familia Slade MD Social History Tobacco Use Types Packs/Day Years Used Date Smoking Tobacco: Never Assessed Sex and Gender Information Value Date Recorded Sex Assigned at Not on file Legal Sex Male 3:48 AM EXECUTIVE VICE PRESIDENT BUSINESS DEVELOPMENT Gender Identity Not on file Sexual Orientation Not on file documented as of this encounter Plan of Treatment Upcoming Encounters Date Type Department Care Team (Late st Contact Info) Description 10/05/2025 3:00 PM EXECUTIVE VICE PRESIDENT BUSINESS DEVELOPMENT Office Visit [facility] Heart and Vascular At [address] [place] [address] Cooper Paulson MD [facility]. [address] [place] [address] documented as of this encounter Visit Diagnoses Not on filedocumented in this encounter Care Teams Educational Fundraising Director Relationship Specialty Start Date End Date Eddie Meadows MD PCP - General Internal Medicine 12/03/20 documented as of this encounter
--- OUTSIDE RECORDS SUMMARY | 2025-05-12 00:51 | XMS_ITS | Clinical Summary ---
Author Organization [facility] Care Team Providers Care Nougat Cutter Machine Name Role Phone Unavailable Primary Care Provider Unavailabl e Social History Tobacco Use Types Packs/Day Years Used Date Smoking Tobacco: Never Assessed Sex and Gender Information Value Date Recorded Sex Assigned at Not on file Legal Sex Male 10:45 AM SCANNER OPERATOR Gender Identity Not on file Sexual [...]
--- OUTSIDE RECORDS SUMMARY | 2025-05-12 00:51 | XMS_ITS | Encounter Summary ---
Author Organization [facility] Address [address] [place] [address] Care Team Providers Care Stenotypist Name Role Phone Eddie Meadows MD Primary Care Provider Unavailab le Encounter Details Date Type Department Care Team (Late st Contact Info) Description 02/10/2005 Outpatient Historical [facility] Internal Medicine [place] [address] [place] [address] Familia Slade MD Social History Tobacco Use Types Packs/Day Years Used Date Smoking Tobacco: Never Assessed Sex and Gender Information Value Date Recorded Sex Assigned at Not on file Legal Sex Male 3:48 AM SALESPERSON PARTS Gender Identity Not on file Sexual Orientation Not on file documented as of this encounter Plan of Treatment Upcoming Encounters Date Type Department Care Team (Late st Contact Info) Description 10/05/2025 3:00 PM SALESPERSON PARTS Office Visit [facility] Heart and Vascular At [address] [place] [address] Cooper Paulson MD [facility]3 [facility]. [address] [place] [address] documented as of this encounter Visit Diagnoses Not on filedocumented in this encounter Care Teams Stenotypist Relationship Specialty Start Date End Date Eddie Meadows MD PCP - General Internal Medicine 12/03/20 documented as of this encounter
--- OUTSIDE RECORDS SUMMARY | 2025-05-12 00:51 | XMS_ITS | Clinical Summary ---
Author Organization [facility] Administrative Offices Address [address] [place] [address] Care Team Providers Care Guide Dog Trainer Name Role Phone Eddie Meadows MD Primary [...] intramuscular injection one time only. Active cpap paramedical aide daily. Active aspirin (ECOTRIN EC) 81 mg Tablet, Delayed Release (E.C.) Take 1 Tablet (81 mg) by mouth daily. 5 Active cpap paramedical aide Active econazole (SPECTAZOLE) 1 % Cream APPLY [...] NEEDED FOR ANXIETY 30 Tablet 3 Active Additional Information Patient not taking.Reported on [...] by mouth daily. 4 Active evolocumab (Repatha SureClick) 140 mg/mL Pen Injector Inject 1 mL (140 mg) by subcutaneous injection every 2 weeks. 2 mL 11 5 Active nitroglycerin (NITROSTAT) 0.4 mg Tablet, Sublingual Place 1 Tablet (0.4 mg) under tongue every 5 minutes as needed for Chest Pain. 30 Tablet 3 5 Active Active Problems Patient Care Coordination No te Formatting of this note migh t be different from the original. Tv Technician - Dr. Karl Paulson Problem Noted Date [...] Chest pain Coronary artery disease invo lving [facility] without angina pectoris Resolved Problems Problem Noted Date Diagnosed Date Resolved Date Cataract, left 08/30/2019 09/04/2019 Cataract, right 08/15/2019 09/04/2019 Statin intolerance 01/24/2016 1 ERRONEOUS ENCOUNTER--DISREGARD 02/26/2012 02/26/2012 Statin intolerance 09/18/2011 1 Myofascial pain syndrome 09/18/2011 Encounters Date Type Department Care Team Description 05/05/2025 Results Follow-Up [facility] Heart and Vascular [address] [place] [address] Keturah Quigley RN ALT, LIPID PANEL 04/21/2025 External Device Data STL ABSTRACTION Provider, Abstract 04/21/2025 External Device Data STL ABSTRACTION Provider, Abstract 04/15/[address] [facility] Heart and Vascular At [address] [place] [address] Cooper Paulson MD pre admitting testing 04/01/2025 3:20 PM CDT Office Visit [facility] Heart and Vascular At [facility] [address] [place] [address] Cooper Paulson MD History of [...] COVID-19 VACCINE - EMERGENCY USE AUTHORIZATION, MRNA, [id number](PF) 30 MCG/0.3 ML IM SUSP 05/02/2022,11/16/2021 (PNEUMOVAX 23)(50 YRS UP) PN EUMOCOCCAL POLYSACCHARIDE (PPV23) 0.5 ML, IM 05/11/2021 (PREVNAR 13)(6 WKS UP) PNEUM OCOCCAL CONJUGATE (PCV13) 0.5 ML, IM 06/05/2020 (SHINGRIX)(50 YRS UP) ZOSTER VACCINE RECOMBINANT, 0.5 ML, IM 03/17/2021,06/05/2020 (SPIKEVAX 5-)(12YR UP) COVID-19 VACCINE, MRNA (PF)50 MCG/0.5 ML, IM SYRINGE 06/08/2023 INFLUENZA VACCINE QUADRIVALENT RECOMB 18 YR [...] on file Legal Sex Male 3:[address] INTERPRETER Gender Identity Not on file Sexual Orientation Not on file 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 Not on file Not on file Not on f ile Last Filed Vital Signs Vital Sign Reading Time Taken Comments Blood Pressure 132/68 04/01/2025 2:54 PM CDT Pulse 78 04/01/2025 2:54 PM CDT Temperature 36.7 C (98.1 F) 10/05/2022 2:[address] INTERPRETER Respiratory Rate 14 09/07/2022 12:[address] INTERPRETER Oxygen Saturation 97% 04/01/2025 2:54 PM CDT Inhaled Oxygen Concentration - - Weight 113.9 kg (251 lb) 04/01/2025 2:54 PM CDT Height 188 cm (6' 2) 04/01/2025 2:54 PM CDT Body Mass Index 32.23 04/01/2025 2:54 PM CDT Plan of Treatment Upcoming Encounters Date Type Department Care Team (Late st Contact Info) Description 10/05/2025 3:[address] INTERPRETER Office Visit [facility] Heart and Vascular At [place] [address] [facility] [address] [place] [address] Cooper Paulson MD [address] [facility]. [address] [place] [address] Health Maintenance Due Date Last Done [...] Completed 05/05/2023 Medical Devices Implanted Type Area Light Rail Vehicle Operator Device Identifier Shelf Expiration Date Model / Serial / Lot Lens Io Sn60wf 17.5 - [id number] Implanted:Qty : 1 on 08/19/2019 by Sourav Alvarez MD at [facility] Eye Right: Eye [employer] 10/04/2023 SN60WF.17 5 / [id number] / Lens Io Sn60wf 18.0 - [id number] Implanted:Qty : 1 on 09/02/2019 by Sourav Alvarez MD at [facility] Eye Left: Eye [employer] 04/05/2024 SN60WF.18 0 / [id number] / Promus Premier-06/23 Implanted:Qty : 1 on 06/23/2015 by Cooper Paulson MD Stent Coronary [employer] - INTERVENTIONAL CA 05/10/2016 / / [id number] Description:3.5mm X 20mm PHILIP to RCA Procedures Procedure Name Priority Date/Time Associated Diagnosis Comments LIPID PANEL Routine 05/04/2025 7:10 AM CDT History of coronary artery stent placement. PHILIP to RCA 15 in NSTEMI Primary hypertension ALT Routine 05/04/2025 7:10 AM CDT History of coronary artery stent placement. PHILIP to RCA 11/15 in NSTEMI Primary hypertension HEMOGLOBIN A1C Routine 10/05/2022 2:[address] INTERPRETER Prediabetes from Last 3 Months or Most Recently Relevant to Health Maintenance Results * ALT (05/04/2025 7:10 AM CDT) Pathologist [facility] ALT 20 9 - 46 U/L [facility] Comment: FASTING:YES FASTING: YES Test Performed at: [facility] [address] [address] Kat Roman Blood 05/04/2025 7:10 AM CDT 05/04/2025 7:11 AM CDT us Cooper Paulson MD CHEMISTRY ORDERABLES nal Result [facility] [phone] [facility] [address] [address] * (ABNORMAL) LIPID PANEL (05/04/2025 7:10 AM CDT) [facility] CHOLESTEROL 106 <200 mg/dL [facility] HDL 33(L) > OR = 40 mg/dL [facility] TRIGLYCERIDE 299(H) <150 mg/dL [facility] Comment: If a non-fasting specimen was collected, consider repeat triglyceride testing on a fasting specimen if clinically indicated. Nick et al. J. of Clin. Lipidol. 2015;9:129-169. LDL CALCULATED 42 mg/dL (calc) [facility] [employer] Comment: Reference range: <100 Desirable range <100 mg/dL for primary prevention; <70 mg/dL for patients with CHD or diabetic patients with > or = 2 CHD risk factors. LDL-C is now calculated using the Miladys calculation, which is a validated novel method providing better accuracy than the Friedewald equation in the estimation of LDL-C. Kirk ARIAS et al. SWAPNA. 2013;310(19): 8936-2306 (http://education.[employer]/faq/UAB079) CHOL/HDL RATIO 3.2 <5.0 (calc) [facility] NON-HDL CHOLESTEROL 73 <130 mg/dL (calc) [facility] [employer] Comment: For patients with diabetes plus 1 major ASCVD risk factor, treating to a non-HDL-C goal of <100 mg/dL (LDL-C of <70 mg/dL) is considered a therapeutic option. Test Performed at: [facility] [address] [place] [phone] Kat Roman Blood 05/04/2025 7:10 AM CDT 05/04/2025 7:11 AM CDT Cooper Paulson MD CHEMISTRY ORDERABLES Fi nal Result Performing Organization Address City/[facility] Code Phone Number [facility] [phone] [place] [address] [place] [phone] * HEMOGLOBIN A1C (10/05/2022 2:[address] INTERPRETER) HEMOGLOBIN A1C 5.5 <5.7 % of total Hgb [facility] Comment: For the purpose of screening for the presence of diabetes: <5.7% Consistent with the absence of diabetes 5.7-6.4% Consistent with increased risk for diabetes (prediabetes) > or =6.5% Consistent with diabetes This assay result is consistent with a decreased risk of diabetes. Currently, no consensus exists regarding use of hemoglobin A1c for diagnosis of diabetes in children. According to [place] Diabetes Association (ADA) guidelines, hemoglobin A1c <7.0% represents optimal control in non- diabetic patients. Different metrics may apply to specific patient populations. Standards of Medical Care in Diabetes(ADA). ESTIMATED AVERAGE GLUCOSE (MG/DL) 111 mg/dL [facility] ESTIMATED AVERAGE GLUCOSE (MMOL/L) 6.2 mmol/L [facility] Comment: Test Performed at: [facility] [address] [place] [phone] [facility] Abel Blood 10/05/2022 2:[address] INTERPRETER 10/05/2022 2:[address] INTERPRETER Eddie Meadows MD CHEMISTRY ORDERABLES Final Resul t [facility] [phone] [facility] [address] [place] [phone] from Last 3 Months or Most Recently Relevant to Health Maintenance Insurance AETNA [facility] RX AETNA Medicare Part D AETNA [facility] Advance Directives For more information, please contact: [phone] * Full Code (Latest Code Status on [...] 9:36 AM 06/24/2015 4:16 PM Care Teams Guide Dog Trainer Relationship Specialty Start Date End Date Eddie Meadows MD PCP - General Internal Medicine 12/03/20
--- OUTSIDE RECORDS SUMMARY | 2025-05-12 00:51 | XMS_ITS | Encounter Summary ---
Author Organization [facility] Address [address] [place] [address] Care Team Providers Care Cover Mat Machine Operator Name Role Phone Eddie Meadows MD Primary Care Provider Unavailab le Encounter Details Date Type Department Care Team (Late st Contact Info) Description 03/10/2002 Outpatient Historical [facility] Internal Medicine [place] [address] [place] [address] Familia Slade MD Social History Tobacco Use Types Packs/Day Years Used Date Smoking Tobacco: Never Assessed Sex and Gender Information Value Date Recorded Sex Assigned at Not on file Legal Sex Male 3:48 AM SUPPLY SERVICE WORKER Gender Identity Not on file Sexual Orientation Not on file documented as of this encounter Plan of Treatment Upcoming Encounters Date Type Department Care Team (Late st Contact Info) Description 10/05/2025 3:00 PM SUPPLY SERVICE WORKER Office Visit [facility] Heart and Vascular At [address] [place] [address] Cooper Paulson MD [facility]. [address] [place] [address] documented as of this encounter Visit Diagnoses Not on filedocumented in this encounter Care Teams Cover Mat Machine Operator Relationship Specialty Start Date End Date Eddie Meadows MD PCP - General Internal Medicine 12/03/20 documented as of this encounter
--- OUTSIDE RECORDS SUMMARY | 2025-05-12 00:51 | XMS_ITS | Encounter Summary ---
Author Organization [facility] Address [address] [place] [address] Care Team Providers Care Petrophysical Engineer Name Role Phone Eddie Meadows MD [...] on file Legal Sex Male 3:48 AM ROPE TOW OPERATOR Gender Identity Not on file Sexual Orientation Not on file documented as of this encounter Plan of Treatment Upcoming Encounters Date Type Department Care Team (Late st Contact Info) Description 10/05/2025 3:00 PM ROPE TOW OPERATOR Office Visit [facility] Heart and Vascular At [place] [address] [address] [facility] [address] [place] [address] Cooper Paulson MD [address] [place] [address] [place] [address] documented as of this encounter Visit Diagnoses Diagnosis Other dyspnea and respiratory abnormality- Primary documented in this encounter Care Teams Petrophysical Engineer Relationship Specialty Start Date End Date Eddie Meadows MD PCP - General Internal Medicine 12/03/20 documented as of this encounter
--- OUTSIDE RECORDS SUMMARY | 2025-05-12 00:51 | XMS_ITS | Encounter Summary ---
Author Organization [facility] Address [address] [place] [address] Care Team Providers Care Paving Inspector Name Role Phone Eddie Meadows MD Primary Care Provider Unavailab le Encounter Details Date Type Department Care Team (Late st Contact Info) Description 12/07/2003 Outpatient Historical [facility] Internal Medicine [place] [address] [place] [address] Familia Slade MD Social History Tobacco Use Types Packs/Day Years Used Date Smoking Tobacco: Never Assessed Sex and Gender Information Value Date Recorded Sex Assigned at Not on file Legal Sex Male 3:48 AM CORPORATE TRAVEL MANAGER Gender Identity Not on file Sexual Orientation Not on file documented as of this encounter Plan of Treatment Upcoming Encounters Date Type Department Care Team (Late st Contact Info) Description 10/05/2025 3:00 PM CORPORATE TRAVEL MANAGER Office Visit [facility] Heart and Vascular At [address] [place] [address] Cooper Paulson MD [facility]3 [facility]. [address] [place] [address] documented as of this encounter Visit Diagnoses Not on filedocumented in this encounter Care Teams Paving Inspector Relationship Specialty Start Date End Date Eddie Meadows MD PCP - General Internal Medicine 12/03/20 documented as of this encounter
--- OUTSIDE RECORDS SUMMARY | 2025-05-12 00:51 | XMS_ITS | Encounter Summary ---
Author Organization [facility] Address [address] [place] [address] Care Team Providers Care Music Cataloguer Name Role Phone Eddie Meadows MD Primary Care Provider Unavailab le Encounter Details Date Type Department Care Team (Late st Contact Info) Description 07/02/2007 Outpatient Historical [facility] Internal Medicine [place] [address] [place] [address] Familia Slade MD Social History Tobacco Use Types Packs/Day Years Used Date Smoking Tobacco: Never Assessed Sex and Gender Information Value Date Recorded Sex Assigned at Not on file Legal Sex Male 3:48 AM PROFESSOR OF VOICE Gender Identity Not on file Sexual Orientation Not on file documented as of this encounter Plan of Treatment Upcoming Encounters Date Type Department Care Team (Late st Contact Info) Description 10/05/2025 3:00 PM PROFESSOR OF VOICE Office Visit [facility] Heart and Vascular At [address] [place] [address] Cooper Paulson MD [facility]. [address] [place] [address] documented as of this encounter Visit Diagnoses Not on filedocumented in this encounter Care Teams Music Cataloguer Relationship Specialty Start Date End Date Eddie Meadows MD PCP - General Internal Medicine 12/03/20 documented as of this encounter
--- OUTSIDE RECORDS SUMMARY | 2025-05-12 00:51 | XMS_ITS | Encounter Summary ---
Author Organization [facility] Address [address] [place] [address] Care Team Providers Care Lumber Grader Name Role Phone Eddie Meadows MD Primary Care Provider Unavailab le Encounter Details Date Type Department Care Team (Late st Contact Info) Description 10/15/2003 Outpatient Historical [facility] [place] [address] [place] [address] Familia Slade MD Social History Tobacco Use Types Packs/Day Years Used Date Smoking Tobacco: Never Assessed Sex and Gender Information Value Date Recorded Sex Assigned at Not on file Legal Sex Male 3:48 AM AUDIOPROSTHOLOGIST Gender Identity Not on file Sexual Orientation Not on file documented as of this encounter Plan of Treatment Upcoming Encounters Date Type Department Care Team (Late st Contact Info) Description 10/05/2025 3:00 PM AUDIOPROSTHOLOGIST Office Visit [facility] At [address] [place] [address] Cooper Paulson MD [facility]. [address] [place] [address] documented as of this encounter Visit Diagnoses Not on filedocumented in this encounter Care Teams Lumber Grader Relationship Specialty Start Date End Date Eddie Meadows MD PCP - General Internal Medicine 12/03/20 documented as of this encounter
--- OUTSIDE RECORDS SUMMARY | 2025-05-12 00:51 | XMS_ITS | Encounter Summary ---
Author Organization [facility] Address [address] [place] [address] Care Team Providers Care Lending Consultant Name Role Phone Eddie Meadows MD Primary Care Provider Unavailab le Encounter Details Date Type Department Care Team (Late st Contact Info) Description 06/07/2004 Outpatient Historical [facility] Internal Medicine [place] [address] [place] [address] Familia Slade MD Social History Tobacco Use Types Packs/Day Years Used Date Smoking Tobacco: Never Assessed Sex and Gender Information Value Date Recorded Sex Assigned at Not on file Legal Sex Male 3:48 AM PIPE INSULATOR HELPER Gender Identity Not on file Sexual Orientation Not on file documented as of this encounter Plan of Treatment Upcoming Encounters Date Type Department Care Team (Late st Contact Info) Description 10/05/2025 3:00 PM PIPE INSULATOR HELPER Office Visit [facility] At [address] [place] [address] Cooper Paulson MD [facility] [place] [facility]. [address] [place] [address] documented as of this encounter Visit Diagnoses Not on filedocumented in this encounter Care Teams Lending Consultant Relationship Specialty Start Date End Date Eddie Meadows MD PCP - General Internal Medicine 12/03/20 documented as of this encounter
--- OUTSIDE RECORDS SUMMARY | 2025-05-12 00:51 | XMS_ITS | Encounter Summary ---
Author Organization [facility] Address [address] [place] [address] Care Team Providers Care Intellectual Property Counsel Name Role Phone Eddie Meadows MD Primary Care Provider Unavailab le Encounter Details Date Type Department Care Team (Late st Contact Info) Description 04/08/2002 Outpatient Historical [facility] Internal Medicine [place] [address] [place] [address] Familia Slade MD Social History Tobacco Use Types Packs/Day Years Used Date Smoking Tobacco: Never Assessed Sex and Gender Information Value Date Recorded Sex Assigned at Not on file Legal Sex Male 3:48 AM IP PARALEGAL Gender Identity Not on file Sexual Orientation Not on file documented as of this encounter Plan of Treatment Upcoming Encounters Date Type Department Care Team (Late st Contact Info) Description 10/05/2025 3:00 PM IP PARALEGAL Office Visit [facility] At [address] [place] [address] Cooper Paulson MD [facility]3 [facility]. [address] [place] [address] documented as of this encounter Visit Diagnoses Not on filedocumented in this encounter Care Teams Intellectual Property Counsel Relationship Specialty Start Date End Date Eddie Meadows MD PCP - General Internal Medicine 12/03/20 documented as of this encounter
--- OUTSIDE RECORDS SUMMARY | 2025-05-12 00:51 | XMS_ITS | Encounter Summary ---
Author Organization [facility] Address [address] [place] [address] Care Team Providers Care Clarifying Plant Operator Name Role Phone Eddie Meadows MD Primary Care Provider Unavailab le Encounter Details Date Type Department Care Team (Late st Contact Info) Description 04/08/2002 Outpatient Historical [facility] Internal Medicine [place] [address] [place] [address] Familia Slade MD Social History Tobacco Use Types Packs/Day Years Used Date Smoking Tobacco: Never Assessed Sex and Gender Information Value Date Recorded Sex Assigned at Not on file Legal Sex Male 3:48 AM ENVIRONMENTAL FIELD TECHNICIAN Gender Identity Not on file Sexual Orientation Not on file documented as of this encounter Plan of Treatment Upcoming Encounters Date Type Department Care Team (Late st Contact Info) Description 10/05/2025 3:00 PM ENVIRONMENTAL FIELD TECHNICIAN Office Visit [facility] Vascular At [address] [place] [address] Cooper Paulson MD [facility]. [address] [place] [address] documented as of this encounter Visit Diagnoses Not on filedocumented in this encounter Care Teams Clarifying Plant Operator Relationship Specialty Start Date End Date Eddie Meadows MD PCP - General Internal Medicine 12/03/20 documented as of this encounter
--- OUTSIDE RECORDS SUMMARY | 2025-05-12 00:51 | XMS_ITS | Encounter Summary ---
Author Organization [facility] Address [address] [place] [address] Care Team Providers Care Windsmith Name Role Phone Eddie Meadows MD Primary Care Provider Unavailab le Encounter Details Date Type Department Care Team (Late st Contact Info) Description 03/12/1999 Outpatient Historical [facility] Internal Medicine [place] [address] [place] [address] Familia Slade MD Social History Tobacco Use Types Packs/Day Years Used Date Smoking Tobacco: Never Assessed Sex and Gender Information Value Date Recorded Sex Assigned at Not on file Legal Sex Male 3:48 AM CORPORATE TRAVEL CONSULTANT Gender Identity Not on file Sexual Orientation Not on file documented as of this encounter Plan of Treatment Upcoming Encounters Date Type Department Care Team (Late st Contact Info) Description 10/05/2025 3:00 PM CORPORATE TRAVEL CONSULTANT Office Visit [facility] At [address] [place] [address] Cooper Paulson MD [facility]. [address] [place] [address] documented as of this encounter Visit Diagnoses Not on filedocumented in this encounter Care Teams Windsmith Relationship Specialty Start Date End Date Eddie Meadows MD PCP - General Internal Medicine 12/03/20 documented as of this encounter
--- OUTSIDE RECORDS SUMMARY | 2025-05-12 00:51 | XMS_ITS | Encounter Summary ---
Author Organization [facility] Address [address] [place] [address] Care Team Providers Care Water Inspector Name Role Phone Eddie Meadows MD [...] on file Legal Sex Male 3:48 AM MONEY COUNTER Gender Identity Not on file Sexual Orientation Not on file documented as of this encounter Plan of Treatment Upcoming Encounters Date Type Department Care Team (Late st Contact Info) Description 10/05/2025 3:00 PM MONEY COUNTER Office Visit [facility] Heart [facility] V[facility] At [place] [address] [address] [facility] [address] [place] [address] Cooper Paulson MD [facility]3 [facility]. [address] [place] [address] documented as of this encounter Visit Diagnoses Diagnosis Concussion with no loss of consciousness- Primary documented in this encounter Care Teams Water Inspector Relationship Specialty Start Date End Date Eddie Meadows MD PCP - General Internal Medicine 12/03/20 documented as of this encounter
--- OUTSIDE RECORDS SUMMARY | 2025-05-12 00:51 | XMS_ITS | Encounter Summary ---
Author Organization [facility] Address [address] [place] [address] Care Team Providers Care Signaling Design Engineer Name Role Phone Eddie Meadows MD Primary Care Provider Unavailab le Encounter Details Date Type Department Care Team (Late st Contact Info) Description 05/19/2002 Outpatient Historical [facility] Stacia Rodrigez MD [address] [facility] [place] [address] SCREENING MAL NEOP-COLON (Primary Dx) Social History Tobacco Use Types Packs/Day Years Used Date Smoking Tobacco: Never Assessed Sex and Gender Information Value Date Recorded Sex Assigned at Not on file Legal Sex Male 3:48 AM MANAGER FILTER Gender Identity Not on file Sexual Orientation Not on file documented as of this encounter Plan of Treatment Upcoming Encounters Date Type Department Care Team (Late st Contact Info) Description 10/05/2025 3:00 PM MANAGER FILTER Office Visit [facility] At [place] [address] [address] [facility] [address] [place] [address] Cooper Paulson MD [address] [facility]. [address] [place] [address] documented as of this encounter Visit Diagnoses Diagnosis Special screening for malignant neoplasms, colon- Primary documented in this encounter Care Teams Signaling Design Engineer Relationship Specialty Start Date End Date Eddie Meadows MD PCP - General Internal Medicine 12/03/20 documented as of this encounter
--- OUTSIDE RECORDS SUMMARY | 2025-05-12 00:51 | XMS_ITS | Encounter Summary ---
Author Organization [facility] Address [address] [place] [address] Care Team Providers Care Explosive Operator Supervisor Name Role Phone Eddie Meadows MD Primary Care Provider Unavailab le Encounter Details Date Type Department Care Team (Late st Contact Info) Description 01/23/2000 Outpatient Historical [facility] Internal Medicine [place] [address] [place] [address] Familia Slade MD Social History Tobacco Use Types Packs/Day Years Used Date Smoking Tobacco: Never Assessed Sex and Gender Information Value Date Recorded Sex Assigned at Not on file Legal Sex Male 3:48 AM FORESTRY FIRE AID Gender Identity Not on file Sexual Orientation Not on file documented as of this encounter Plan of Treatment Upcoming Encounters Date Type Department Care Team (Late st Contact Info) Description 10/05/2025 3:00 PM FORESTRY FIRE AID Office Visit [facility] Heart and Vascular At [address] [place] [address] Cooper Paulson MD [facility]. [address] [place] [address] documented as of this encounter Visit Diagnoses Not on filedocumented in this encounter Care Teams Explosive Operator Supervisor Relationship Specialty Start Date End Date Eddie Meadows MD PCP - General Internal Medicine 12/03/20 documented as of this encounter
--- OUTSIDE RECORDS SUMMARY | 2025-05-12 00:51 | XMS_ITS | Encounter Summary ---
Author Organization [facility] Address [address] [place] [address] Care Team Providers Care Die Tripper Name Role Phone Eddie Meadows MD Primary [...] on file Legal Sex Male 3:48 AM PERSONAL BANKING REPRESENTATIVE Gender Identity Not on file Sexual Orientation Not on file documented as of this encounter Plan of Treatment Upcoming Encounters Date Type Department Care Team (Late st Contact Info) Description 10/05/2025 3:00 PM PERSONAL BANKING REPRESENTATIVE Office Visit [facility] Vascular At [address] [place] [address] Cooper Paulson MD [address] [place] [address] [place] [id number] documented as of this encounter Visit Diagnoses Not on filedocumented in this encounter Care Teams Die Tripper Relationship Specialty Start Date End Date Eddie Meadows MD PCP - General Internal Medicine 12/03/20 documented as of this encounter
[2025-05-12] MEDS: ACETAMINOPHEN 500 MG TABLET 1000 MG PO (06:30)
[2025-05-12] MEDS: LACTATED RINGERS 1,000 ML 30 ML IV CONT ×2 (06:30→10:07)
[2025-05-12] MEDS: TRANEXAMIC ACID 1,000MG/ISO100 1,000 MG/100 ML BAG 200 MG IVPB (07:00)
--- NOTE | 2025-05-12 07:08 | WPDANESEPPF ---
Anes - Initial Pre Proc Eval Procedure: Operation Date: 05/12/25 07:30 Proposed Procedures p Left Total Knee Arthroplasty - Johnny Terry MD Date/Time: 05/12/25 07:08 Surgeon: Johnny Terry MD Pre Op Diagnosis: primary OA left knee Patient Data Age: 69 Gender: M Height: 1.85 m Weight: 112.04 kg Last Vital Signs Temp 36.9 C 04/15/25 10:34 Pulse 63 04/15/25 10:34 Resp 14 04/15/25 10:34 BP 123/64 04/15/25 10:34 Pulse Ox 94 04/15/25 10:34 O2 Del Method Room Air 04/15/25 10:34 Allergies Allergy/AdvReac Type Severity Reaction Status Date / Time egg Allergy Severe Anaphylaxis Verified 04/15/25 10:28 codeine AdvReac Unknown Upset Verified 04/15/25 10:28 Stomach Home Medications ?Medication ?Instructions ?Recorded ?Confirmed ?Type allopurinol 300 mg tablet 300 mg PO DAILY 12/18/24 04/15/25 History aspirin 81 mg tablet 81 mg PO DAILY 12/18/24 04/15/25 History cyanocobalamin (vitamin B-12) 1,000 mcg PO DAILY 12/18/24 04/15/25 History 1,000 mcg tablet desvenlafaxine 100 mg 100 mg PO DAILY 12/18/24 04/15/25 History tablet,extended release 24 hr epinephrine 0.3 mg/0.3 mL 0.3 mg IM ONCE 12/18/24 04/15/25 History injection, auto-injector (EpiPen) evolocumab 140 mg/mL subcutaneous 140 mg subcut ONCE 12/18/24 04/15/25 History pen injector fluticasone propionate 50 1 spray intranasal DAILY 12/18/24 04/15/25 History mcg/actuation nasal spray,suspension gabapentin 600 mg tablet 600 mg PO TID 12/18/24 04/15/25 History hydrochlorothiazide 12.5 mg capsule 12.5 mg PO DAILY 12/18/24 04/15/25 History losartan 100 mg tablet 100 mg PO DAILY 12/18/24 04/15/25 History nebivolol 10 mg tablet 10 mg PO DAILY 12/18/24 04/15/25 History pantoprazole 40 mg tablet,delayed 40 mg PO QAM 12/18/24 04/15/25 History release prednisone 1 mg tablet 2 mg PO DAILY 12/18/24 04/15/25 History tamsulosin 0.4 mg capsule 0.4 mg PO DAILY 12/18/24 04/15/25 History albuterol sulfate 90 mcg/actuation 1 inh inhalation Q4H PRN 01/09/25 04/15/25 History aerosol inhaler (Ventolin HFA) bronchospasm alprazolam 0.5 mg tablet 0.5 mg PO DAILY PRN anxiety 01/09/25 04/15/25 History benzonatate 100 mg capsule 100 mg PO TID PRN cough 01/09/25 04/15/25 History Laboratory Tests 05/12/25 06:31 Blood Type Pending Antibody Screen Pending Patient hx anesthesia problems: none Family hx anesthesia problems: none Results Review: All pre-operative results and documents have been reviewed as part of the pre-operative evaluation. 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 Coronary artery disease involving creek artery of transplanted heart without angina pectoris Stage 3 chronic kidney disease Recurrent major depressive disorder in partial remission Statin myopathy Mixed dyslipidemia Benign prostatic hyperplasia with urinary hesitancy Chronic pain of left knee Statin intolerance 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 with body mass index (BMI) of 33.0 to 33.9 in adult Polymyalgia rheumatica Idiopathic chronic gout of multiple sites without tophus Gastroesophageal reflux disease with apnea without esophagitis Generalized anxiety disorder Sleep apnea Surgical History Surgical History History of total right knee replacement (~2016) History of hernia surgery (~2010) History of repair of anterior cruciate ligament of right knee (~1992) History of appendectomy (~1977) Family History Family History Mother Cerebrovascular accident Social History Social History Smoking status: Unknown if ever smoked Second hand tobacco smoke exposure: No Alcohol intake: never Substance use: never Do You Feel Safe in your Home?: Yes Lack of Transportation: No Lack of Food: Never True Current Housing: I Have Housing Concerned About Future Housing: No Difficulty Paying Gas/Electric Bills: No Difficulty Paying for Meds: No Currently Unemployed: No Education: Master's Degree or Higher Difficulty w/ Childcare or Family Care: No Living arrangements: with family Additional living arrangements comments: Spiritual care concerns: No Anes - Eval Final PreProcedure Day of Procedure 05/12/25 07:08 Patient weight: obese Heart: regular rate and rhythm Lungs: clear to auscultation Airway: Mallampati scale class II Neurological: alert and oriented Last oral intake: >/= 8 hours ASA classification: III Emergent: no Anesthetic plan: proceed Anesthesia type and monitoring: general LMA and standard monitoring Results Review: All pre-operative results and documents have been reviewed as part of the pre-operative evaluation. Informed Consent: The patient's anesthetic plan and its attendant risks and benefits were discussed with the patient/family/POA. Questions were solicited and answers provided to the satisfaction of the patient/family/POA.
--- NOTE | 2025-05-12 07:18 | WPDHPUPDATE1 ---
History and Physical Update Update Date/Time: 05/12/25 07:18 History and Physical has been reviewed, including an updated exam of the patient. There are NO changes in the patient's condition. Risks, benefits, and alternatives have been discussed and questions answered. Patient agrees to proceed with procedure.
[2025-05-12] MEDS: ceFAZolin 2 GM in SODIUM CHLORIDE 0.9% IV 50 ML 100 ML IVPB ×3 (07:25→23:10)
[2025-05-12] MEDS: SODIUM CHLORIDE 0.9% IV 37.7 ML, MORPHINE SULFATE INJ (*CRX) 2 MG, ROPivacaine HCL 1% 2... INFILTRATE (08:13)
[2025-05-12] MEDS: GENTAMICIN BONE CEMENT REFOBACIN 1 EACH TOPICAL (08:49)
[2025-05-12] MEDS: TRANEXAMIC ACID 1,000 MG/10 ML AMPUL 1000 MG IV PUSH (09:45)
[2025-05-12] MEDS: fentaNYL CITRATE INJ (*CRX) 100 MCG/2 ML VIAL 25 MCG IV PUSH ×4 (10:45→10:52)
--- NOTE | 2025-05-12 11:07 | ADMGEN ---
This patient, Cristofer Rodriguez Milvia Culver, was admitted to [facility] Surg Room 313-01. Patient/family oriented to hospital policies and general routines including ID bracelet, bed and alarms, visiting hours, pain management, procedures, bathroom and other care routines, personal items, smoking policy, room service/diet, and visiting hours. Information on how to activate the Rapid Response Team has been discussed. Patient/Family are encouraged to report perceived risks to care and to ask questions if they do not understand what they are told or what they should do.
[2025-05-12] MEDS: GABAPENTIN 300 MG CAPSULE 600 MG PO ×2 (11:45→18:01)
[2025-05-12] MEDS: ASPIRIN 81 MG ENTERIC TABLET PO ×2 (11:46→21:04)
[2025-05-12] MEDS: ACETAMINOPHEN 325 MG TABLET 650 MG PO ×3 (11:46→23:09)
[2025-05-12] MEDS: SENNA/DOCUSATE SODIUM TABLET 2 TAB PO ×2 (11:54→18:01)
[2025-05-12] MEDS: oxyCODONE/ACETAMINOPHEN (*CRX) 5-325 MG TABLET 1 TABLET PO ×3 (12:16→23:09)
--- NOTE | 2025-05-12 15:34 | W.PM.PROC2 ---
Procedure Note - Detailed Date of Procedure 05/12/25 Pre-op Diagnosis primary OA left knee Post-op Diagnosis Same Procedure Performed Calipered, kinematically aligned total knee replacement left knee. Surgeon Johnny Terry MD Sustainable Development Policy Analyst Dora Stone PA-C Anesthesia General Findings According to the calipered kinematic alignment principles, the knee was balanced by the following verification checks incorporating 6 caliper measurements, using an insert goniometer to select the insert thickness, and adjusting the tibial resection following the kinematic alignment algorithm (see figure 160.10 published in [employer] [facility] chapter on kinematic alignment total knee arthroplasty.) The steps verified the femoral and tibial components were kinematically aligned coincident to the patient's pre arthritic joint lines, which closely restored the point lay ira tibial compartment forces and ligament laxities without ligament release. The [employer] SperiKA knee, designed specifically for kinematic alignment, fit optimally. Severe inflammatory changes and synovitis. Excellent bone quality. Large stature. PCL released. The record of verification checks were documented and scanned into the chart. Distal Femoral Resection: Distal Medial 6 mm(cartilage worn), Distal Lateral 6 mm(cartilage worn) Target thickness of 8mm Unworn, 6mm Worn (No Cartilage). Posterior Femoral Resection: Posterior Medial 5 mm(cartilage worn), Posterior Lateral 7 mm. Target thickness of 7mm Unworn, 5mm Worn (No Cartilage). Description of Procedure General anesthesia was administered. A well-padded tourniquet was placed high on the thigh. The limb was prepped and draped in the usual sterile fashion. The limb was exsanguinated and the tourniquet inflated to 300 mmHg. A longitudinal incision was created over the midline of the knee. Sharp dissection was taken through subcutaneous tissues. Electrocautery was used for hemostasis. A trivector approach to the knee joint was performed. The ACL, anterior horns of the menisci, and fat pad were excised, and a subperiosteal dissection was carried along the posterior medial border of the tibia. Starting midway between the top of the notch in the anterior femoral cortex, I drilled a 9 mm diameter hole parallel to the anterior cortex to minimize flexion of the femoral component and promote patella tracking. I verified the existence of a 5-10 mm bone bridge between the posterior aspect of the hole and the anterior limit of the intercondylar notch. An intraosseous positioning rochelle was inserted 10 cm into the femur perpendicular to the distal joint line and parallel to the anterior cortex. I used a distal femoral referencing guide that compensated 2 mm when the cartilage was worn on the distal medial femoral condyle, and 2 mm when the cartilage was worn on the distal lateral femoral condyle. The basis for setting the distal and posterior femoral resection guide is knowing that the varus and valgus grade II to IV Kellegren-Rich osteoarthritic knees have negligible bone wear at 0? and 90? and that the mean full-thickness cartilage wear approximates 2 mm. I measured the thickness of distal femoral resections with a caliper to +/- 0.5 mm. The thickness of each resection was adjusted to match the thickness of the respective condyle of the femoral component within 0.5 mm of target after compensating for cartilage wear and kerf. When the distal resection was 1-2 mm too thin, a recut guide was used to adjust the cut. When the distal resection was too thick, a 1 or 2 mm thick washer was fixed to the back of the 4-in-1 chamfer block to oseas a corrective gap between the femoral component and distal femur. I set posterior femoral referencing guide at 0? orientation to position the pin holes for the 4 in 1 chamfer block. The nena wing measured the width of the distal femoral resection and selected the size of the 4 in 1 chamfer block and femoral component. The AP sizer confirmed the size. I measured the thickness of the posterior femoral resections with a caliper before making the anterior and chamfer cuts. I adjusted the thicknesses of each resection to match the thickness of the respective condyle of the femoral component within +/-0.5 mm after compensating for cartilage wear and curve. When a posterior resection femoral resection was 1-2 mm too thick or thin a corrective correction was made by shifting or rotating the 4 in 1 chamfer block as needed. The chamfer block was secured in the correct position with compression screws. The anterior and chamfer femoral resections were made. These caliper measurements and corrections verified that the femoral component was set coincident with the patient's pre-arthritic distal and posterior femoral joint lines. I removed all the medial and lateral femoral and tibial osteophytes to restore the pre arthritic length of the medial and lateral collateral ligaments. I melanie AP lines along the major axis of the lateral tibial plateau in between the tibial spines which identified the flexion extension plane of the knee. A conventional extramedullary tibial resection guide was applied to the ankle. An nena wing was placed medially in the saw slot. The varus valgus angle of the tibial resection guide was adjusted until the guide paralleled the proximal tibial articular surface after compensating for cartilage and bone wear. The slope of flexion extension angle of the tibial resection guide was adjusted until the nena wing paralleled the slope of the medial tibia after compensating for wear. The AP axis of the tibial resection guide was adjusted parallel to the two lines. The proximal tibia was resected, partially releasing the insertion of the posterior cruciate ligament. The thickness of the medial and lateral lateral tibial condyle was measured at the base of the tibial spines. I visually verified the slope of the medial border of the resection was parallel to the patient's pre arthritic slope after compensating for cartilage and bone wear. I removed the remnants of the posterior horns of the menisci and posterior osteophytes and cauterized the inferior lateral genicular vessels. The Aquamantys bipolar device was also used to for additional hemostasis. When the knee had a preoperative flexion contracture of 20? or more I teased the capsule off the posterior femur with a curved 3 quarter-inch osteotome. I administered the posterior femoral periosteal injection by delivering 10 cc using a 20 gauge spinal needle at the most medial and 10 cc at the most lateral femoral spur surface which reduced the risk of injury to the posterior neurovascular structures. I followed 6 options in a decision tree to fine tune the varus valgus and posterior slope orientation of the tibial component to restore the patient's pre arthritic tibial joint line and limb alignment. First, I adjusted the varus-valgus orientation of the proximal tibia resection working in 1 degree to 2 degree increments until there was negligible medial and lateral lift off of the distal femoral and proximal tibial resection from the spacer block during a varus valgus laxity assessment in extension. I selected the largest anatomic shape trial tibial base plate that fit within the cortical boundary of the proximal tibial resection. The base plate was best fit parallel to the cortical boundary which set the Internal-external orientation of the anterior to posterior and medial to lateral positions. The best fit method set the AP axis of the tibial base plate and insert parallel to the flexion extension plane of the pre arthritic knee. I pinned the trial tibial base plate, prepared the cruciate slot, and fixed the base plate to the tibia with the cruciate stem. I inserted the trial femoral component. The knee was placed in full extension. Varus valgus laxity is of the knee with trial components were assessed. When asymmetric laxity was observed a 1-2 degree varus or valgus recut guide was used to fine tune the tibial resection until the laxity was 1 degree or less in full extension like the point lay ira knee. The following steps determined the optimal insert thickness within +/-1 mm. First I inserted an insert goniometer that matched the thickness of the spacer block. I reduced the patella and then with the knee in maximum extension, I verified the knee hyperextended a few degrees and had negligible varus valgus laxity, like the pre arthritic knee. Next, I measured the external tibial orientation which was the angle the insert goniometer intersected the sagittal line on the medial condyle of the femoral trial component. Then with the knee in 15-30 degrees flexion I verified a 3-4 mm gap in the lateral compartment and no gap in the medial compartment during a 2nd varus valgus laxity test. Next, I placed the knee in 90? of flexion and the foot resting on the operating table and measured the internal tibial orientation. I repeated the steps until I identified the insert thickness that provided the highest external tibia orientation in extension and the highest internal tibial orientation at 90? flexion without anterior lift-off of the insert from the tibial base plate. The insert with this thickness was implanted. I applied a posterior drawer test with the tibia distracted by gravity and verified no posterior subluxation of the tibia relative to the femur. The thickness of the point [place] ir[place] patella was measured with a caliper. The patella was resected using the oscillating saw. The best fitting anatomic patella button was selected. The fixation holes were drilled. When the patella and patella buttons combined thickness was thicker than the point lay ira patella, the patella was recut. The patella remained centered on the trochlea and tracked well throughout the entire arc of flexion and extension. I used pulse lavage to clean the bony surfaces of debris and dried bone. I cemented the tibial, femoral, and patellar components using 1 bag of methylmethacrylate with Gentamycin, then rechecked the stability at full extension, 15-30 degrees, and 90? flexion and verified holiness of the entire arc of motion of the knee. The circulating nurse confirmed the sponge and needle counts were correct. I used pulse lavage to rinse the joint and wound. The extensor mechanism was closed with interrupted #1 Vicryl suture and #1 running Stratafix suture. The subcutaneous layer was closed with interrupted #1 Vicryl suture followed by 2-0 Stratafix and 3-0 Stratafix. Steri-Strips placed on the skin. Silver impregnated occlusive dressing applied to the wound. A light gauze wrap and Ruddy bandage were placed. The patient was transferred to the recovery room in stable condition. There were no complications. Implants Medacta GMK spheriKA Femoral component SpheriKA size 6, tibial component size 5, vitamin-E flex insert, thickness 14mm, Anatomic patella implant size 3. Estimated Blood Loss 20 Tourniquet Time Total Tourniquet Time: 90 Drains No Pathology None sent Complications No immediate complications Condition Stable Disposition PACU [facility] Billing Surgery - Charge Forward: Surgery Billing
[2025-05-12] MEDS: oxyCODONE/ACETAMINOPHEN (*CRX) 10-325 MG TABLET 1 TAB PO (19:22)
[2025-05-12] MEDS: TAMSULOSIN HCL 0.4 MG CAPSULE PO (21:02)
[2025-05-12] MEDS: NEBIVOLOL HCL 5 MG TABLET 10 MG PO (21:03)
[2025-05-12] MEDS: LOSARTAN POTASSIUM 100 MG TABLET PO (21:04)
[2025-05-12] MEDS: PANTOPRAZOLE 40 MG TABLET PO (21:04)
[2025-05-12] MEDS: WATER FOR IRRIGATION, STERILE 1,000 ML BOTTLE 1000 ML (21:04)
[2025-05-13 00:29] VITALS: BP 140/66; PULSE 78; RESP 18; TEMP 36.6; O2SAT 96
[2025-05-13] MEDS: oxyCODONE/ACETAMINOPHEN (*CRX) 10-325 MG TABLET 1 TAB PO (01:24)
[2025-05-13 03:46] VITALS: BP 136/68; PULSE 66; RESP 20; TEMP 36.3; O2SAT 98
[2025-05-13 06:14] LABS: Hematocrit 36.6 % (42.0-52.0); Hemoglobin 12.0 g/dL (14.0-18.0); Immature Granulocyte Percent A 0.7 % (0-0.5); Lymphocytes Absolute Auto 0.96 K/mm3 (0.9-3.2); Mean Corpuscular HGB Conc 32.8 g/dl (32-36); Mean Corpuscular Hemoglobin 31.9 pg (26-34); Mean Corpuscular Volume 97.3 fl (80-100); Nucleated Red Blood Cells Absolute Auto 0.000 K/mm3 (0.0-0.012); Nucleated Red Blood Cells Perc 0.0 % (0.0-0.2); Platelet Count Result 199 k/mm3 (150-375); Red Blood Count 3.76 M/mm3 (4.6-6.20); White Blood Count 12.4 K/mm3 (4.5-10.0)
[2025-05-13] MEDS: ACETAMINOPHEN 325 MG TABLET 650 MG PO (06:27)
[2025-05-13] MEDS: oxyCODONE/ACETAMINOPHEN (*CRX) 5-325 MG TABLET 1 TABLET PO ×2 (06:27→09:43)
[2025-05-13] MEDS: ceFAZolin 2 GM in SODIUM CHLORIDE 0.9% IV 50 ML 100 ML IVPB (06:27)
[2025-05-13 06:35] LABS: Anion Gap 5 mmol/L (4-12); Blood Urea Nitrogen 30 mg/dL (9-20); Calcium 8.4 mg/dL (8.4-10.2); Carbon Dioxide 28 mmol/L (22-30); Chloride 103 mmol/L (98-107); Estimated CRCL calculation 53 ml/min; Estimated Glomerular Filt Rate 44; Glucose 113 mg/dL (65-110); Potassium 4.9 mmol/L (3.4-5.0); Sodium 136 mmol/L (137-145)
[2025-05-13 08:46] VITALS: BP 132/66; PULSE 63; RESP 18; TEMP 35.7; O2SAT 100
[2025-05-13] MEDS: SENNA/DOCUSATE SODIUM TABLET 2 TAB PO (08:53)
[2025-05-13] MEDS: ASPIRIN 81 MG ENTERIC TABLET PO (08:53)
[2025-05-13] MEDS: GABAPENTIN 300 MG CAPSULE 600 MG PO (08:53)
[2025-05-13] MEDS: CYCLOBENZAPRINE HCL 10 MG TABLET PO (09:43)
== END 2025-05-13 11:04 | disposition home or self-care (01) ==
LOC: ANHSURGERY 07:18 → ANH3MEDSUR 11:02
PROVIDERS: Physician Assistant Surgical; PCP Internal Medicine; Visit Provider Orthopaedic Surgery
PROC: (CPT 27447; principal; 2025-05-12 07:30)
DX: M17.12 Unilateral primary osteoarthritis, left knee (principal); M25.762 Osteophyte, left knee; G89.29 Other chronic pain; I12.9 Hypertensive chronic kidney disease with stage 1 through stage 4 chronic kidney disease, or unspecified chronic kidney disease; N18.30 Chronic kidney disease, stage 3 unspecified; I25.10 Atherosclerotic heart disease of native coronary artery without angina pectoris; E78.2 Mixed hyperlipidemia; N40.1 Benign prostatic hyperplasia with lower urinary tract symptoms; R39.11 Hesitancy of micturition; M35.3 Polymyalgia rheumatica; K21.9 Gastro-esophageal reflux disease without esophagitis; F41.9 Anxiety disorder, unspecified; G47.30 Sleep apnea, unspecified; F33.41 Major depressive disorder, recurrent, in partial remission; M1A.09X1 Idiopathic chronic gout, multiple sites, with tophus (tophi); E66.9 Obesity, unspecified; Z68.32 Body mass index [BMI] 32.0-32.9, adult; Z79.82 Long term (current) use of aspirin; Z79.85 Long-term (current) use of injectable non-insulin antidiabetic drugs; Z79.52 Long term (current) use of systemic steroids; Z79.51 Long term (current) use of inhaled steroids; Z98.890 Other specified postprocedural states
CPT/HCPCS: 27447; 36415; 73560; 80048; 85025; 86850; 86900; 86901; 97110; 97161; 97165; 97530; 97535; C1776; J0690; A9270; C1713; J0166; J1100; J1885; J2270; J2405; J2704; J2795; J3010; J3290; J7120; J7512